=== PATIENT | female | born 1940 | race Caucasian/White ===

== ENCOUNTER 2017-04-10 11:26 | Inpatient (IN) | payer MEDICARE, OTHER ==
[~2017-04-10] VITALS: Ht 172.7 cm; Wt 115.2 kg
[2017-04-10] VITALS (8 sets, daily range): BP systolic 107–145; BP diastolic 45–104; PULSE 62–79; RESP 16–22; O2SAT 96–99
[~2017-04-10 11:26] MED LIST: ACET-171 PO; ASPI81TA3 PO; CALC600T12 PO; CHOL10008 PO; CITA20TA11 PO; OMEP20TA86 PO; SLO64 PO
[2017-04-10] MEDS ORDERED: 0.9% Sodium Chloride 1,000 ML IV ONE ×2 (11:29→12:25)
--- NOTE | 2017-04-10 11:29 | ED.REPORT ---
HPI-GI Bleed Date of Service Apr 10, 2017 ED Provider: Cornelius Encinas MD Pt is a 76 y/o female w/ a hx of paroxysmal a-fib (not on anticoagulation), HTN , presenting to the ED via EMS c/o hematemesis onset this morning. The patient has been experiencing dark tarry stools and diarrhea for the last 2 weeks which has not been worked up. This morning she vomited with emesis which appeared to be coffee-ground and dark red in appearance. The patient has been experiencing chronic abdominal pain and had a CT scan performed in September which was unremarkable. The patient was discouraged with the negative results and therefore hasn't been to follow-up since that time. Medics arrived to fine the patient pale, diaphoretic, and hypotensive. She is usually hypertensive and on route had a systolic BP of 95 after 600-700 cc of NS. She has no history of GI bleeds in the past. She takes 81 mg ASA daily and no anticoagulants. Her only abdominal surgery is cholecystectomy. At time of arrival she has received about 1 L NS and her HR is 70 and BP is 112/53. She is currently complaining of burning epigastric pain. Nursing Notes Stated Complaint: BLOODY EMESIS Nursing Notes Reviewed: Yes Allergies: Coded Allergies: No Known Drug Allergies (Verified Allergy, Unknown, 09/04/15) Scheduled Amlodipine (Amlodipine) 5 Mg Tablet 5 MG PO DAILY Aspirin Chew (Aspirin Chew) 81 Mg Tab.chew 81 MG PO DAILY Calcium Carbonate (Calcium) 600 Mg Tablet 600 MG PO DAILY Cholecalciferol (Vitamin D3) (Vitamin D3) 1,000 Unit Tab.chew 2,000 UNIT PO DAILY Citalopram (Citalopram) 20 Mg Tablet 20 MG PO DAILY Folic Acid (Folic Acid) 0.4 Mg Tablet Unknown Dose PO DAILY Scheduled PRN Acetaminophen (Acetaminophen) 500 Mg Tablet 500 MG PO Q6H PRN PRN For Fever Omeprazole (Omeprazole) 20 Mg Tablet.dr 20 MG PO DAILY PRN PRN For Indigestion General Time Seen by Provider: 11:31 Chief Complaint Chief Complaint: Vomiting coffee grounds Hx Obtained From: Patient, EMS Arrived By: Ambulance Onset Occurred: 1 - 4 hours ago Symptom Duration: Since onset Progression Since Onset: Gradually improving Location: : Diffuse Quality: Painful Severity: Current: Mild Severity: Maximum: Moderate Recent Healthcare: No recent doctor visit, No recent hospitalization Similar Sx Previous: No Past Medical History Past Medical History Notes: PCP: Dr. Aaron Past Medical History Depression Atrial fibrillation not on anticoagulation Hypertension Past Surgical History Back surgery Reports: Cholecystectomy Smoking History Former Smoker Social History Alcohol Use: Denies alcohol use Drug Use: Denies drug use Other Social History: Good social support Ambulatory Status Independent Review of Systems Constitutional: Denies: Fever Respiratory: Denies: Shortness of breath Cardiovascular: Denies: Chest pain GI: Reports: Abdominal pain, Bloody/tarry stool, Diarrhea, Hematemesis, Nausea , Vomiting Complete sys rev & neg: except as marked. Physical Exam Initial Vital Signs Vital Signs (First) Date Time Temp Pulse Resp B/P Pulse Ox O2 Delivery O2 Flow Rate FiO2 04/10/17 11:40 36.4 76 20 112/53 96 Room Air Initial VS: Reviewed, Vital signs normal Neck: Supple, Full range of motion Extremities: Vascular intact, Neuro intact, No swelling Neurologic: Alert, Oriented, Nonfocal Psychiatric: Mood/affect normal, Behavior normal, Normal thought content General/Constitutional: Awake, Alert, No acute distress, Cooperative, Not toxic appearing Appearance / Presentation: Positive: Pale (mild) Behavior is stoic Respiratory / Chest: Breath sounds NL, Breath sounds = bilat, No respiratory distress, No rales, No rhonchi, No wheezing Cardiovascular: Heart rate NL, Regular rhythm, Heart sounds NL, No gallop, No murmurs, No rubs, Cap refill not delayed, Peripheral circulation NL, Pulses = bilaterally Abdomen: Atraumatic, Soft, Non-tender, No guarding, No rebound, No distention, No palpable mass Rectum / Perineum: Atraumatic Rectal for Blood: Positive: Blood - occult heme + Black stool Head / Eyes: Normocephalic, PERRL Mild scleral pallor Skin Skin: Atraumatic, Warm, Dry, Intact Mildly pale Lower Extremity / Pelvis / MS: No deformity, Neurologic intact, Vascular intact Small ecchymosis about right anterior paul Interpretation & Diagnostics Lab Results Interpretation Result Diagram: 04/10/17 1147 04/10/17 1147 Test 04/10/17 11:47 White Blood Count 12.4th/mm3 (3.8-10.1) Red Blood Count 3.69mil/mm3 (3.90-5.20) Hemoglobin 10.3g/dL (12.0-15.6) Hematocrit 32.4% (35.0-46.0) Mean Corpuscular Volume 87.8fL (81-100) Mean Corpuscular Hemoglobin 27.9pg (27.0-35.0) Mean Corpuscular Hemoglobin Concent 31.8% (32.0-37.0) Red Cell Distribution Width 13.5% (12.3-15.4) Platelet Count 294bil/L (150-400) Neutrophils (%) (Auto) 72.0% (40-74) Lymphocytes (%) (Auto) 19.7% (14-46) Monocytes (%) (Auto) 6.6% (4-12) Eosinophils (%) (Auto) 1.4% (0-5) Basophils (%) (Auto) 0.1% (0-3) Prothrombin Time 10.7sec (8.1-12.5) Prothromb Time International Ratio 1.00ratio Sodium Level 138mEq/L (134-144) Potassium Level 4.4mEq/L (3.5-5.2) Chloride Level 104mEq/L (97-108) Carbon Dioxide Level 21mmol/L (18-29) Blood Urea Nitrogen 36mg/dL (8-27) Creatinine 0.85mg/dL (0.57-1.00) Estimat Glomerular Filtration Rate 93mL/min (>59) Glucose Level 155mg/dL (60-99) Calcium Level 8.7mg/dL (8.5-10.1) Magnesium Level 1.7mg/dL (1.6-2.6) Total Bilirubin 0.4mg/dL (0.0-1.2) Aspartate Amino Transf (AST/SGOT) 10U/L (0-50) Alanine Aminotransferase (ALT/SGPT) 7U/L (0-32) Alkaline Phosphatase 75U/L (25-165) Total Protein 6.5g/dL (6.4-8.4) Albumin 3.3g/dL (3.4-5.0) Prealbumin 23mg/dL (20-40) Hold Gunn Top Tube Received (Received) ECG Interpretation ECG Interpretation: Sinus rhythm rate 65 LAD Nonspecific T wave abnormalities in leads V5 and V6 Compared to prior dated 09/05/15 - T wave abnormalities are now present laterally Time: 12:11 Interpreted by: ED physician Normal ECG Interpretation: No acute ischemic changes Re-Eval/Medical Decision Med Decision/Clinical Course Pt is a 76 y/o female w/ a hx of paroxysmal a-fib (not on anticoagulation), HTN , presenting to the ED via EMS c/o hematemesis onset this morning. The patient has been experiencing dark tarry stools and diarrhea for the last 2 weeks which has not been worked up. This morning she vomited with emesis which appeared to be coffee-ground and dark red in appearance. The patient has been experiencing chronic abdominal pain and had a CT scan performed in September which was unremarkable. The patient was discouraged with the negative results and therefore hasn't been to follow-up since that time. Medics arrived to fine the patient pale, diaphoretic, and hypotensive. She is usually hypertensive and on route had a systolic BP of 95 after 600-700 cc of NS. She has no history of GI bleeds in the past. She takes 81 mg ASA daily and no anticoagulants. Her only abdominal surgery is cholecystectomy. At time of arrival she has received about 1 L NS and her HR is 70 and BP is 112/53. She is currently complaining of burning epigastric pain. Upon arrival in the emergency department the patient is borderline hypotensive and somewhat pale in appearance though otherwise with stable vital signs. Pt was placed on the monitor and 2 large bore peripheral IVs were obtained. Meds given: pantoprazole bolus and infusion, IVF, Zofran. EKG: Sinus rhythm rate 65 LAD Nonspecific T wave abnormalities in leads V5 and V6 Compared to prior dated 09/05/15 - T wave abnormalities are now present laterally Labs notable as below: CBC: Leukocytosis of 12.4, HCT of 32.4 down from 39.5 on 09/06/15 CMP: elevated BUN of 36 otherwise unremarkable Coag studies: normal Patient noted to have some coffee-ground emesis material on her clothing. Rectal examination reveals black stool that is strongly guaiac positive. Patient complained of ongoing burning epigastric pain though her abdomen was otherwise benign without guarding, rigidity or rebound. She was given a GI cocktail and hydromorphone for additional pain management. Patient was discussed with Dr. Nieves with plan to perform endoscopy tomorrow. There are no findings at this time suggestive of an acute surgical process or perforated ulcer as her abdominal examination is not peritoneal. I do not feel that CT imaging of her abdomen will be of much diagnostic utility at this time. Patient was stabilized after receiving IV fluids and blood is sent for type and screen. Given the patient's initial hypotension, active GI bleed and possibility of deterioration she was admitted to the ICU for further management after being stabilized here in the emergency department. She was discussed with admitting hospitalist and accepted. Re-Evaluation/Progress #1: Time of Eval: 11:48 Re-Evaluation/Progress Note: Pt rechecked. Informed pt of need for admission. Pt understands and agrees with plan for admission. All questions addressed. Re-Evaluation/Progress #2: Time of Eval: 13:14 Re-Evaluation/Progress Note: Now complaining of burning abdominal pain. Will order GI cocktail. Consultation #1: Referral / Consult Name: Bo Nieves MD Call Returned at: 11:30 O And M Supervisor: Will see patient, Agrees with eval, Agrees with plan Note: Discussed case with GI prior to pt arrival. Will scope tomorrow Consultation #2: Referral / Consult Name: Unique Ferreira DO Consulted With: Hospitalist Call Returned at: 14:03 O And M Supervisor: Will see patient, Agrees with eval, Agrees with plan, Accepts admit Counseled Regarding: Diagnosis, Lab results, Need for admission Discharge & Departure Impression: Primary Impression: Upper GI bleed Additional Impressions: Hematemesis Nausea presence: with nausea Qualified Code: K92.0 - Hematemesis Abdominal pain Abdominal location: epigastric Qualified Code: R10.13 - Epigastric pain Peptic ulcer disease Hypotension Hypotension type: unspecified hypotension type Qualified Code: I95.9 - Hypotension, unspecified Disposition: ADMITTED TO HOSPITAL Discharge Condition All VS Reviewed: Yes Condition: Stable Referrals: Shelton Aaron MD (PCP) Crit Care Except Billable Proc Time Spent: 30-74 minutes Services Performed: Patient management by me, Time spent at bedside, Reviewing test results, Reviewing imaging, Discussing patient care, Documentation in record, Time with fam/surrogate Critical Care Notes: Management of active GI bleed, stabilization of initial hypotension Scribe Attestation Portions of this note were transcribed by Nghia Gomez. I, Dr. Encinas personally performed the history, physical exam and medical decision-making; I reviewed and confirmed the accuracy of the information in the transcribed note. copies to: Shelton Aaron MD, Beck O MD Apr 10, 2017 11:29 NGHIA GOMEZ Apr 10, 2017 11:34
[2017-04-10] MEDS ORDERED: Pantoprazole Inj 80 MG, Pharmacy To Mix 1 EA in 0.9% Sodium Chloride 80 ML IV ONE ×2 (11:30)
[2017-04-10] MEDS ORDERED: Pantoprazole 4 mg/mL 10 mL Inj IVPUSH ONE (11:30)
[2017-04-10] MEDS ORDERED: Ondansetron 2 mg/mL 2 mL Inj IVPUSH ONE (11:30)
[2017-04-10 12:06] LABS: BASOPHILS % (AUTO) 0.1 % (0-3); EOSINOPHILS % (AUTO) 1.4 % (0-5); MONOCYTES % (AUTO) 6.6 % (4-12); Mean Corpuscular Hemoglobin 27.9 pg (27.0-35.0); Mean Corpuscular Volume 87.8 fL (81-100); Platelet Count 294 bil/L (150-400)
[2017-04-10] MEDS ORDERED: HYDROmorphone 1 mg/mL Inj IVPUSH ONE (12:25)
[2017-04-10 12:30] LABS: Magnesium 1.7 mg/dL (1.6-2.6)
[2017-04-10] MEDS ORDERED: LidocaineVisc 2%:Antacid 1:1 10 mL Syringe PO ONE (13:15)
[2017-04-10] MEDS ORDERED: AMLO5TAB2 PO (13:30)
[2017-04-10] MEDS ORDERED: CALC600T12 PO (13:31)
[2017-04-10] MEDS ORDERED: FOLI0.4T2 PO (13:32)
[2017-04-10] MEDS ORDERED: Alum-Mag Hydrox-Simeth 30 mL Suspension PO PRN (14:10)
[2017-04-10] MEDS ORDERED: Polyethylene Glycol (PEG) 17 Gm Powder PO PRN (14:10)
[2017-04-10] MEDS ORDERED: Senna-Docusate 8.6-50 mg Tablet PO PRN (14:10)
[2017-04-10] MEDS ORDERED: Ondansetron 2 mg/mL 2 mL Inj IVPUSH PRN (14:10)
--- NOTE | 2017-04-10 14:24 | CONS ---
[address] [address] CONSULTATION REPORT PATIENT: NARA MUNROE : 1940 MR#: [id number] ADMIT: 04/10/2017 JOB ID: [id number] DATE OF SERVICE: 04/10/2017 REASON FOR CONSULTATION: Coffee-ground emesis and melena. HISTORY OF PRESENT ILLNESS: A 76-year-old, female, history of paroxysmal atrial fibrillation, hypertension, depression, not on anticoagulation, cholecystectomy and back surgery in past. Presents here with hematemesis x1 day and melenic stools for the past two weeks. The patient states she has had several melenic stools per day for the past two weeks. The patient also states that she vomited once this morning which was burgundy and dark in color this morning. The patient states this was about a cupful. The patient had an EGD and colonoscopy at the age of 66 which was normal per the patient. I have no records. The patient denies family history of colon cancer, IBD, or celiac disease. The patient denies rectal bleeding, abdominal pain, change in bowel habits, or unintentional weight loss. The patient was found by the medics to be hypotensive, systolic blood pressure is 90s. The patient is not taking any NSAIDs and no history of alcohol use. Patient only takes a baby aspirin. The patient presents for further evaluation. The patient's hemoglobin was 10.3. PAST MEDICAL HISTORY: As stated above. PAST SURGERIES: As stated above. MEDICATIONS AT HOME: 1. Baby aspirin. 2. Calcium carbonate. 3. Vitamin D. 4. Citalopram. 5. Omeprazole 20 mg once a day. No known drug allergies. SOCIAL HISTORY: Former smoker. No IV drug use. No alcohol, no smoking. FAMILY HISTORY: Negative for IBD, celiac disease or colon cancer. REVIEW OF SYSTEMS: Patient denies headache, blurred vision. Positive nausea, vomiting. No chest pain, shortness of breath, abdominal pain, skin rash, joint pain. PHYSICAL EXAMINATION: Vital signs upon presentation: Temperature is 36.4, pulse 77, blood pressure 107/57, respiratory 20, satting 99% on room air. General: No acute distress. Head: No scars. Anicteric. Throat supple. Lungs: Clear to auscultation bilaterally. Cardiovascular: Regular rhythm and rate. Abdomen: Soft, nondistended, nontender. Normal bowel sounds. Extremities: No cyanosis, clubbing or edema. LABORATORIES: Labs show white count 12.4, hemoglobin 10.3, hematocrit 32, platelet count of 294. Sodium 138, potassium 4.4, chloride 104, bicarb 21, BUN 36, creatinine 0.8, glucose 155. Calcium 8.7, magnesium 1.7. Total bili 0.4. AST 10, ALT 7, alk phos 75. Total protein 6.5, albumin 3.3. PT 10.7, INR 1.0. ASSESSMENT AND PLAN: This is a pleasant 76-year-old, female, history of paroxysmal atrial fibrillation, not on anticoagulation, hypertension, depression, status post cholecystectomy and back surgery. She presents here with melena and coffee-ground emesis. It is likely the patient has an upper gastrointestinal bleed given the fact the BUN is elevated with a normal creatinine, and in addition the patient has vomited blood. Differential diagnosis includes esophagitis, gastritis, peptic ulcer disease, duodenitis or Jada-Alarcon tear. Patient in addition needs a colonoscopy given the fact it has been greater than 10 years since her last colonoscopy with melenic stools. RECOMMENDATIONS: 1. Continue Protonix drip. 2. N.p.o. except for medications. 3. GoLYTELY prep tonight for EGD and colonoscopy with anesthesia tomorrow.
--- NOTE | 2017-04-10 14:50 | PCM.HPMED ---
Subjective Date of Service Apr 10, 2017 Primary Provider: Admitting Physician: Unique Ferreira DO Primary Care Physician: Shelton Aaron MD Attending Physician: Unique Ferreira DO Admit Status: From the Emergency Department Chief Complaint: hematemesis, melena, diarrhea History of Present Illness: Erica Forbes is a 76 yr old female patient with past medical history significant for paroxysmal atrial fibrillation not on anticoagulation, hypertension and depression who presented to the ED with complaints of hematemesis, dark tarry stools, and diarrhea. Patient states that for the past 2 weeks, she has had dark tarry stools with diarrhea and this morning, she vomited over a cup of emesis that appeared to be coffee ground and dark red in appearance. In addition, she recalls feeling like she was going to pass out. She noticed her vision going dim, felt sweaty, cold, clammy and was really wet. She denied chest pain and shortness of breath. She states that she has been having abdominal pain, mostly in the mid epigastric area and right lower quadrant since about June 2016. She describes the pain as a mild-moderate sharp pain that doesn't radiate elsewhere. Her primary care physician ordered a CT of the abdomen in September which was negative for any acute pathology. In addition, she states that she had a colonoscopy and an EGD about 10 years ago which she says was normal. She reports having a cholecystectomy in April 2015. The patient denies drinking alcohol, or taking NSAIDs. She takes Aspirin 81 mg daily and Tylenol occasionally for her back pain. En route to the ED via EMS, her systolic BP was around 95 and she received 700 cc NS. In the ED, her temperature was 36.4, heart rate 76, blood pressure 112/53 , 96% on room air. Patient was placed on the monitor in 2 large bore peripheral IVs were obtained. She received a bolus of pantoprazole and infusion , GI cocktail, intravenous fluids and Zofran. Significant labs include WBC 12.4 , Hgb/ HCT of 10.3/ 32.4 elevate BUN 36, normal creatinine 0.85. Tape Keller Operator, Dr. Nieves was consulted and he plans to perform an EGD and colonoscopy on 04/11/17. Patient was transferred to the CCU in stable condition. Review of Systems: The comprehensive review of systems was conducted with the patient and found to be negative except as above in the history of present illness. Allergies Coded Allergies: No Known Drug Allergies (Verified Allergy, Unknown, 09/04/15) Home Medications Amlodipine 5 mg daily Aspirin 81 mg daily Vitamin D Calcium Chewables Citalopram 20 mg daily Omeprazole 20 mg as needed Acetaminophen as needed for back pain PMH Hypertension, paroxysmal atrial fibrillation not on anticoagulation, depression Surgical History Cholecystectomy 04/2015 , Back surgery Family History Family history significant for father with coronary artery disease, maternal aunt with breast cancer, mother with brain aneurysm Social History Occupation: works at [employer] Hx Alcohol Use: No Hx Substance Use: No Smoking Status: Former Smoker (4 pack yr hx, quit in 1970s) Years of Smokin Living Arrangement: with Family Exam Vital Signs Vital Sign - Last Date Time Temp Pulse Resp B/P Pulse Ox O2 Delivery O2 Flow Rate FiO2 04/10/17 13:32 36.8 62 20 110/66 98 Room Air Exam General: Patient is an obese female, lying comfortably on bed, AAOX3, not in acute distress, cooperative and pleasant. HEENT: head normocephalic and atraumatic, PERRLA, EOMI, no scleral icterus, noninjected conjunctiva Neck: neck supple, non-tender, no lymphadenopathy, trachea midline, no JVD CV: regular rate and rhythm, s1 and s2 heard, radial pulses 2+ and equal bilaterally, no rubs, murmurs or gallops, no edema Lungs: Clear to auscultation bilaterally, no wheezes, rales or rhonchi, no increased work of breathing Abdomen: normoactive bowel sounds on 4Q, soft, non-distended, non-tender to palpation, no organomegally, Skin: warm and dry Musculoskeletal: 5/5 UE and LE strength bilaterally, full ROM bilaterally Neuro: Grossly neurologically intact, cranial nerves II through XII intact, no dyskinesia, dysmetria, or dysdiadochokinesia noted, sensation intact in extremities Psych: Normal mood and affect Lab and Diagnostics Labs Laboratory Tests Test 04/10/17 11:47 White Blood Count 12.4th/mm3 (3.8-10.1) Red Blood Count 3.69mil/mm3 (3.90-5.20) Hemoglobin 10.3g/dL (12.0-15.6) Hematocrit 32.4% (35.0-46.0) Mean Corpuscular Volume 87.8fL (81-100) Mean Corpuscular Hemoglobin 27.9pg (27.0-35.0) Mean Corpuscular Hemoglobin Concent 31.8% (32.0-37.0) Red Cell Distribution Width 13.5% (12.3-15.4) Platelet Count 294bil/L (150-400) Neutrophils (%) (Auto) 72.0% (40-74) Lymphocytes (%) (Auto) 19.7% (14-46) Monocytes (%) (Auto) 6.6% (4-12) Eosinophils (%) (Auto) 1.4% (0-5) Basophils (%) (Auto) 0.1% (0-3) Prothrombin Time 10.7sec (8.1-12.5) Prothromb Time International Ratio 1.00ratio Sodium Level 138mEq/L (134-144) Potassium Level 4.4mEq/L (3.5-5.2) Chloride Level 104mEq/L (97-108) Carbon Dioxide Level 21mmol/L (18-29) Blood Urea Nitrogen 36mg/dL (8-27) Creatinine 0.85mg/dL (0.57-1.00) Estimat Glomerular Filtration Rate 93mL/min (>59) Glucose Level 155mg/dL (60-99) Calcium Level 8.7mg/dL (8.5-10.1) Magnesium Level 1.7mg/dL (1.6-2.6) Total Bilirubin 0.4mg/dL (0.0-1.2) Aspartate Amino Transf (AST/SGOT) 10U/L (0-50) Alanine Aminotransferase (ALT/SGPT) 7U/L (0-32) Alkaline Phosphatase 75U/L (25-165) Total Protein 6.5g/dL (6.4-8.4) Albumin 3.3g/dL (3.4-5.0) Prealbumin 23mg/dL (20-40) Hold Gunn Top Tube Received (Received) Result Diagram: 04/10/17 1147 04/10/17 1147 X-Rays, CTs and MRIs August 25, 2016 PROCEDURE: CT ABDOMEN AND PELVIS WITH CONTRAST ([id number]) IMPRESSION: 1. No acute process. 2. Hiatal hernia. 3. Bilateral renal scarring. 4. Fat-containing umbilical hernia. 5. Normal appendix. Dictated by: Angel Carty M.D. on 08/25/2016 at 16:25 12-lead ECG 04/10/17 ECG Interpretation: Sinus rhythm rate 65 LAD Nonspecific T wave abnormalities in leads V5 and V6 Compared to prior dated 09/05/15 - T wave abnormalities are now present laterally Time: 12:11 Interpreted by: ED physician Normal ECG Interpretation: No acute ischemic changes Assessment & Plan Erica Forbes is a 76 yr old female patient with past medical history significant for paroxysmal atrial fibrillation not on anticoagulation, hypertension and depression who presented to the ED with complaints of hematemesis, dark tarry stools, and diarrhea. Patient is being admitted to the CCU for likely Upper Gastrointestinal bleed and will undergo EGD and colonoscopy with anesthesia tomorrow. Acute Hematemesis and Melena likely secondary to Upper GI Bleed, present on admission, under investigation. -Patient stable: In the ED, her temperature was 36.4, heart rate 76, blood pressure 112/53, Hgb/ HCT of 10.3/ 32.4 -symptoms are suggestive of Upper GI bleed, in addition to elevated BUN with normal creatinine -Differential Diagnosis include gastric ulcers, gastric erosions, esophagitis, duodenal ulcers -Tape Keller Operator, Dr. Nieves was consulted and we appreciate his input. -Continue Protonix drip -GI cocktail as needed -75 cc/hr NS -keep patient NPO and GoLYTELY prep tonight for EGD and colonoscopy with anesthesia tomorrow. -Trend H&H q 4hrs -Cross type and Match. Transfuse if Hgb <7 Normocytic Anemia, present on admission, ongoing -Hgb/ HCT of 10.3/ 32.4 -likely secondary to GI blood loss -Trend H&H q 4hrs Leukocytosis, present on admission, under investigation - Patient is afebrile, WBC 12.4, neutrophil count normal -Likely secondary to physiologic process (stress)/ inflammatory reaction -Continue to monitor CBC Hypertension, chronic -Patient was hypotensive en route to the ED and received 700 cc NS. She received more fluids in the ED and blood pressure is currently stable -Continue IV fluids at 75 cc/hr -Patient already took amlodipine 5 mg today -Hold medication and resume tomorrow after procedure Depression, chronic -Patient already took citalopram 20 mg today -Hold medication and resume tomorrow after procedure Patient is admitted under inpatient status expected length of stay greater than 2 midnights due to severity of presenting symptoms, risk of adverse events, and complexity of treatment plan. Code Status: Full Code Pain Evaluation: Adequate Pain Control GI Prophylaxis: Other (Protonix drip) VTE Prophylaxis: SCDs VTE Mechanical Devices: Intermittant Pneumatic CD Resuscitation Status: CPR: Attempt Resuscitation Attending Statement The patient was seen and examined together with Dr. Reynolds on 04/11/17 and I have added additional information to the note above. Sanaz Reynolds DO Apr 10, 2017 14:50 Unique Ferreira DO Apr 11, 2017 12:30 VTE Mechanical Devices: Intermittant Pneumatic CD Resuscitation Status: CPR: Attempt Resuscitation Sanaz Reynolds DO Apr 10, 2017 14:50
[2017-04-10] MEDS ORDERED: LidocaineVisc 2%:Antacid 1:1 10 mL Syringe PO PRN (15:45)
[2017-04-10] MEDS ORDERED: PEG/Electrolytes 4,000 mL Solution PO ONE (16:00)
[2017-04-10] MEDS: 0.9% Sodium Chloride 1,000 ML IV SCH (16:34)
--- NOTE | 2017-04-10 16:41 | PCM.ADCARE ---
Advance Care Planning Note Plan: Date: 04/10/2017 Diagnosis: Acute blood loss anemia secondary to GI bleed Normocytic anemia Hypertension Depression Purpose of encounter: Goals of care Parties in attendance: The patient, Dr. Ferreira, her nurse, the patient also previously reported her code status to Dr. Reynolds as well Decisional capacity: Good Plan: The patient is aware of the current diagnosis and would like to continue to be full code. The patient understands that this means for chest compressions , intubation, pressors, and all measures involved with CPR. CODE STATUS: Full code Time spent with advanced care planning: Greater than 16 minutes Unique Ferreira DO Apr 10, 2017 16:41
--- NOTE | 2017-04-10 18:16 | NUR ---
Admit Note: Patient arrived to CCU room 2013 at 1605. Pt was able to transfer self from rney to bed. Pt A&O X3. VSS. Tele: Sinus 60's. Pt denies CP, SOB or dizziness. PIV X2. Protonix gtt infusing at 10mL/hr. NS was started at 75mL/hr as ordered and Colyte was started at 1630. Pt has had one large melenic stool. c/o nausea, Zofran 4mg IVP administered. Frequent rounding in place. Pt using call light appropriately to communicate needs including assistance to BSC, pt wearing nonskid footwear.
[2017-04-10] MEDS: Pantoprazole Inj 80 MG, Pharmacy To Mix 1 EA in 0.9% Sodium Chloride 80 ML IV SCH ×2 (21:10)
[2017-04-11] VITALS (13 sets, daily range): BP systolic 96–135; BP diastolic 40–68; PULSE 59–91; RESP 16–19; O2SAT 95–100
[2017-04-11 03:50] LABS: BASOPHILS % (AUTO) 0.1 % (0-3); EOSINOPHILS % (AUTO) 1.5 % (0-5); Mean Corpuscular Volume 86.7 fL (81-100); NEUTROPHILS % (AUTO) 63.1 % (40-74); Platelet Count 236 bil/L (150-400)
[2017-04-11] MEDS: 0.9% Sodium Chloride 1,000 ML IV SCH ×2 (04:37→19:42)
--- NOTE | 2017-04-11 06:39 | NUR ---
GI: pt. finished colyte prep at 2044, npo since. Pt. had loose, dark, bloody, diarrhea, clear at times per firer retort. Pt. denies pain or nausea.
[2017-04-11] MEDS: Pantoprazole Inj 80 MG, Pharmacy To Mix 1 EA in 0.9% Sodium Chloride 80 ML IV SCH ×4 (06:58→19:42)
--- NOTE | 2017-04-11 09:30 | NUR ---
NPO for procedures/Colyte prep completed
[2017-04-11] MEDS ORDERED: Lactated Ringer's 1,000 ML IV SCH (11:15)
[2017-04-11] MEDS ORDERED: Ondansetron 2 mg/mL 2 mL Inj IVPUSH PRN (11:15)
[2017-04-11] MEDS ORDERED: MetoCLOpramide 5 mg/mL 2 mL Inj IVPUSH PRN (11:15)
--- NOTE | 2017-04-11 11:24 | PCM.HPANE ---
Patient Data Surgeon Admitting Provider:Unique Ferreira DO Attending Provider:Unique Ferreira DO Primary Care Physician:Shelton Aaron MD Other Provider: Reason for Visit Hypotension, Gi Bleed Ht/WT & BMI Height (Feet): 5 Height (Inches): 8.00 Weight (Kilograms): 112.000 Body Mass Index 37.00 Allergies Coded Allergies: No Known Drug Allergies (Verified Allergy, Unknown, 09/04/15) Past Anesthesia History Anesthesia History: Denies:: Abnormal Airway, Anesthesia Reactions, Fam Anesthesia Reaction, Fam Malignant Hypertherm, Malignant Hyperthermia Diabetes History Hx Diabetes?: No MRSA MRSA: No Medications Blood Thinner: Aspirin Active Scripts Aspirin Chew 81 Mg Tab.chew81 Mg PO DAILY #30 Prov:Job [place] MD 06/26/14 Reported Medications Folic Acid 0.4 Mg TabletUnknown Dose PO DAILY 04/10/17 Calcium Carbonate (Calcium)600 Mg [id number] Mg PO DAILY 04/10/17 Amlodipine 5 Mg Tablet5 Mg PO DAILY Ref 0 04/10/17 Cholecalciferol (Vitamin D3) (Vitamin D3)1,000 Unit Tab.chew2,000 Unit PO DAILY 09/05/15 Acetaminophen 500 Mg [id number] Mg PO Q6H PRN For Fever 06/24/15 Citalopram 20 Mg Dlulbl33 Mg PO DAILY Ref 0 05/01/15 Omeprazole 20 Mg Tablet.dr20 Mg PO DAILY PRN For Indigestion 04/27/15 Discontinued Reported Medications Magnesium Chloride (Slow-Mag)64 Mg [id number] Mg PO 06/24/15 Calcium Carbonate (Calcium)600 Mg Fxmlll413 Mg PO BID 05/01/15 History History of ENT Problems?: No HEENT History: Positive for:: Cataracts ("they are just starting") Denies:: Abnormal Airway Dysphagia Glaucoma Hearing Problem Sinus Problem Denture Type: Full- Upper Teeth Condition: Missing Teeth Hx of Heart Problems?: Yes Cardiovascular History: Positive for:: Edema (occasionally) Hypertension Irregular Heartbeat Denies:: AICD Atrial Fibrillation Cardiac Surgery Chest Pain Congestive Heart Failure Heart Murmur Pacemaker Thrombophlebitis Valvular Heart Disease Other History/Comments No CP Hx of Respiratory Problem?: No Respiratory History: Denies:: Asthma COPD Chest Surgery Dyspnea Emphysema Hemoptysis Pneumonia Tuberculosis Hx Neurologic Problems?: Yes Neurological History: Positive for:: CVA ( TIA 2013) Headaches Denies:: Alzheimer's Disease Dementia Dizziness Parkinson's Disease Seizures Hx of GI Problems?: Yes (GIB) Hx of Problems?: Yes Genitourinary History: Positive for:: Urinary Tract Infection Denies:: HX of Hemodialysis Kidney Stones HX of Peritoneal Dialysis: No Female Hx: Denies:: Currently Endometriosis Pelvic Inflammatory Problems with Breasts? Hx Musculoskeletal Problems?: Yes Musculoskeletal History: Positive for:: Back Injury (Surgery 2009) Musculoskeletal Trauma (back injury from fall ) Denies:: Joint Replacement Hx of Psycho/Social Problems?: Yes Psycho Social History: Positive for:: Hx Depression Denies:: Anxiety Bipolar Disorder Suicide Attempt Hx Surgeries?: Yes (gallbladder and back) Hx Any Other Health Problems?: Yes Other History: Positive for:: Hospitalization (06/2014 TIA 05/2015 Gallbladder surgery ) Thyroid Disease (History as a child, nothing current.) Denies:: Cancer History Blood Transfusions: Positive for:: Accept Blood Products? Denies:: Blood Transfusions Hx Diabetes: No Occupation: works at [employer] Hx Alcohol Use: NoHx Substance Use: No Smoking Status: Former Smoker (4 pack yr hx, quit in 1970s) Have You Smoked inLast 12 mo: No Stop/Bang Treated for Sleep Apnea?: No Do You Have a CPAP Machine?: No S-Snoring: Do You Snore Loudly: Yes T-Tired: feel tired, fatigued: No O-Obsered: Observed not breath: No P-Blood Pressure: treated: No B- Body Mass Index > 35 kg/m2: Yes A- Age over 50: Yes N- Neck Large Circumference: No G- Gender Male: No RODRIGUEZ Total Score: 3 RODRIGUEZ Category 2: Yes Risk Assessment Category Category 1A: Patient has history of documented sleep apnea, and HAS NOT received any narcotic, sedative or anesthesia administration during this stay. Category 1B: Patient has history of documented sleep apnea, and HAS received any narcotic , sedative or anesthesia administration during this stay Category 2: Patient has SUSPECTED Obstructive Sleep Apnea, and HAS received any narcotic , sedative or anesthesia administration during this stay. Category 3: Patient has SUSPECTED Obstructive Sleep Apnea and HAS NOT received narcotic, sedative or anesthesia administration during this stay. Category 4: Outpatient in Procedural Areas with known sleep apnea or who screen positive for High Risk via the STOP/BANG questionnaire. Exam Exam Vital Signs Vital Signs Date Time Temp Pulse Resp B/P Pulse Ox O2 Delivery O2 Flow Rate FiO2 04/11/17 08:00 74 04/11/17 05:42 91 General Appearance: Alert, Oriented X3 HEENT/AIRWAY: MP 2, Neck Movement (FROM) Lungs: Clear to Auscultation, Clear to Percussion Heart: Exam Unremarkable, Regular Rate/Rhythm Meds/Labs/Diagnostics Admission Meds Current Medications Pantoprazole 80 mg 80 mg STAT ONCE IVPUSH Last administered on 04/10/17 12:09 ; Start 04/10/17 at 11:30; Stop 04/10/17 at 11:32; Status DC Pantoprazole 80 mg/Miscellaneous 1 ea/Sodium Chloride 100 ml @ 10 mls/hr ONCE ONCE IV Last administered on 04/10/17 12:24; Start 04/10/17 at 11:30; Stop at 21:29; Status DC Sodium Chloride (Normal Saline) 1,000 ml @ 0 mls/hr Q0M ONCE IV Last administered on 04/10/17 12:02; Start 04/10/17 at 11:29; Stop 04/10/17 at 11:32; Status DC Ondansetron HCl (Zofran Inj) 8 mg ONCE ONCE IVPUSH Last administered on 12:09; Start 04/10/17 at 11:30; Stop 04/10/17 at 11:32; Status DC Hydromorphone HCl 1 mg 1 mg ONCE ONCE IVPUSH Last administered on 04/10/17 12: 41; Start 04/10/17 at 12:25; Stop 04/10/17 at 12:26; Status DC Sodium Chloride (Normal Saline) 1,000 ml @ 0 mls/hr Q0M ONCE IV Last administered on 04/10/17 12:25; Start 04/10/17 at 12:25; Stop 04/10/17 at 12:26; Status DC Miscellaneous (GI Cocktail #2 10 mL) 10 ml ONCE ONCE PO Last administered on 13:31; Start 04/10/17 at 13:15; Stop 04/10/17 at 13:16; Status DC Polyethylene Glycol/ Electrolytes 4000 ml 4,000 ml ONCE ONCE PO Last administered on 04/10/17 16:33; Start 04/10/17 at 16:00; Stop 04/10/17 at 16:01; Status DC Pantoprazole 80 mg/Miscellaneous 1 ea/Sodium Chloride 100 ml @ 10 mls/hr Q10H IV Last administered on 04/11/17 06:58; Start 04/10/17 at 21:00 Sodium Chloride (Normal Saline) 1,000 ml @ 75 mls/hr [id number] IV Last administered on 04/11/17 04:37; Start 04/10/17 at 15:50 Labs Test 04/10/17 11:47 04/11/17 03:35 04/11/17 07:42 Prothrombin Time 10.7sec (8.1-12.5) Prothromb Time International Ratio 1.00ratio Magnesium Level 1.7mg/dL (1.6-2.6) Prealbumin 23mg/dL (20-40) Hold Gunn Top Tube Received (Received) White Blood Count 7.4th/mm3 (3.8-10.1) Red Blood Count 3.00mil/mm3 (3.90-5.20) Mean Corpuscular Volume 86.7fL (81-100) Mean Corpuscular Hemoglobin 28.0pg (27.0-35.0) Mean Corpuscular Hemoglobin Concent 32.3% (32.0-37.0) Red Cell Distribution Width 13.7% (12.3-15.4) Platelet Count 236bil/L (150-400) Neutrophils (%) (Auto) 63.1% (40-74) Lymphocytes (%) (Auto) 27.2% (14-46) Monocytes (%) (Auto) 8.0% (4-12) Eosinophils (%) (Auto) 1.5% (0-5) Basophils (%) (Auto) 0.1% (0-3) Sodium Level 142mEq/L (134-144) Potassium Level 3.6mEq/L (3.5-5.2) Chloride Level 110mEq/L (97-108) Carbon Dioxide Level 21mmol/L (18-29) Blood Urea Nitrogen 29mg/dL (8-27) Creatinine 0.71mg/dL (0.57-1.00) Estimat Glomerular Filtration Rate 115mL/min (>59) Glucose Level 108mg/dL (60-99) Lactic Acid Level 0.8mmol/L (0.4-2.0) Calcium Level 7.5mg/dL (8.5-10.1) Total Bilirubin 0.3mg/dL (0.0-1.2) Aspartate Amino Transf (AST/SGOT) 10U/L (0-50) Alanine Aminotransferase (ALT/SGPT) 9U/L (0-32) Alkaline Phosphatase 55U/L (25-165) Total Protein 4.9g/dL (6.4-8.4) Albumin 2.5g/dL (3.4-5.0) Procalcitonin 0.14ng/mL (0.00-0.08) Hemoglobin 7.4g/dL (12.0-15.6) Hematocrit 23.2% (35.0-46.0) Plan Impression Patient chart reviewed, patient interviewed and anesthestic plan with risks, benefits, and alternatives discussed, and informed consent obtained. ASA Physical Status: ASA3 Severe Disease (acute blood loss anemia) Anesthetic Plan: MAC Bene/Risks/Altern/Consents: Yes HP Complete Prior to Induction: Yes Des Ybarra MD Apr 11, 2017 11:16
[2017-04-11] MEDS ORDERED: Lactated Ringer's 1,000 ML IV ONE (11:41)
--- NOTE | 2017-04-11 12:30 | NUR ---
EGD, Colonoscopy completed/ recovery per PACU
--- NOTE | 2017-04-11 12:50 | PCM.ANEP1 ---
Post Anesthesia PACU Phase 1 Assessment Vital Signs Vital Signs Date Time Temp Pulse Resp B/P Pulse Ox O2 Delivery O2 Flow Rate FiO2 04/11/17 11:15 37 59 16 119/56 96 Room Air 04/11/17 08:00 74 04/11/17 05:42 91 Anesthetic Administered: MAC Level of Alertness: Awake, talking BRYANT's with Equal Strength: Yes Pain: No Pain Scale Score: 2 Nausea or Vomiting: No CV Function & Hydration Stable: Yes Airway Device: Lungs: Clear to Auscultation, Clear to Percussion PACU Phase 2 Assessment Complications: No Follow up Care: No Patient Instructions Provided: N/A Comments See anesth record for PACU VS> PACU VSS Des Ybarra MD Apr 11, 2017 12:50
--- NOTE | 2017-04-11 14:04 | ENDO ---
[address] [address] ENDOSCOPY PROCEDURE PATIENT: NARA MUNROE : 1940 MR#: [id number] ADMIT: 04/10/2017 JOB ID: [id number] DATE OF SERVICE: 04/11/2017 TYPE OF OPERATION: Esophagogastroduodenoscopy with biopsy and epi injection and Gold probe thermocoagulation, and APC, colonoscopy. POSTOPERATIVE DIAGNOSIS: 1. There was a 1-cm duodenal ulcer at the posterior bulb with recent stigmata of bleed, status post 2 cc epinephrine injection, Gold probe thermocoagulation, argon plasma coagulation with good hemostasis. 2. Melena seen throughout the entire colon with pandiverticulosis. Intubation of the terminal shows melena of recent bleed. 3. External and internal hemorrhoids. ANESTHESIA: Monitored anesthesia care. COMPLICATIONS: None. ESTIMATED BLOOD LOSS: Minimal. DESCRIPTION OF PROCEDURE: After risks and benefits explained to the patient, informed consent was obtained. After anesthesia administered, upper endoscope was then inserted in mouth and intubated in the esophagus, stomach, second portion of duodenum, and the mucosa carefully examined. After procedure was done, the scope was withdrawn and the procedure terminated. Colonoscope was then inserted from the rectum to terminal ileum. Mucosa carefully examined. Prep of the patient was suboptimal. After procedure done, scope withdrawn, procedure terminated. FINDINGS: Upon inspection of the esophagus, esophageal was normal without masses, ulcers, lesions. Z-line located at 35 cm from the incisors. Upon entering the stomach, the stomach was also normal without masses or lesions. Retroflexion was normal. Upon entering the duodenum, there was a 1-cm posterior bulb ulcer with recent stigmata of bleed. First and 2nd portion were normal. Two cc of epi injection at the ulcer site with Gold probe thermocoagulation and APC with good hemostasis. Biopsies taken in antrum and body. Upon inspection of the anus, there were small internal and external hemorrhoids throughout the entire examination. There was melenic stool seen throughout the entire colon. There was also pandiverticulosis without active bleeding at that diverticulosis. Upon intubation of the terminal ileum, there appeared to be blood inside with melena. Retroflexion showed small internal hemorrhoids. IMPRESSION: 1. Small external and internal hemorrhoids. 2. Pandiverticulosis. 3. Melenic stool seen throughout the entire colon with blood in the terminal ileum. 4. A 1 cm posterior bulb duodenal ulcer with recent stigmata of bleed, status post 2 cc epinephrine injection, Gold probe thermocoagulation, and argon plasma coagulation. RECOMMENDATIONS: 1. Protonix drip x72 hours. 2. Carafate 1 g by mouth four times a day. 3. Clear liquid diet for now. 4. Serial hematocrits. 5. Avoid NSAID, aspirin, and anticoagulation.
[2017-04-11] MEDS ORDERED: MetoCLOpramide 5 mg/mL 2 mL Inj ONE (14:49)
--- NOTE | 2017-04-11 15:08 | NUR ---
Social Work Note: Initial Assessment Data& Assessment: EMR Reviewed. Erica Forbes is a 76 year old female admitted on 04/10/2017 for hypotension and GI bleed. Pt has Medicare and [employer] Supplemental insurance coverage. Pt PCP is Shelton Aaron MD. Pt lives in [place], with her son, daughter in law and grandson and is independent with all ADL's at baseline. Pt is able to ambulate independently but does own a cane, FWW and 4WW if needed. Pt does not have LTC insurance or VA benefits. Pt does not have HH hx but has been to [facility] in the past. Pt states she has DPOA/AD paperwork completed, COMMUNITY PHARMACIST requested a copy when possible. Pt son will transport her home at time of discharge. MD denies any other COMMUNITY PHARMACIST needs. MD does not identify any concerns for capacity for self care at this time. Pt denies any needs. COMMUNITY PHARMACIST to continue to follow if any pt needs or MD orders arise. Plan: Anticipated discharge home via POV when medically ready. COMMUNITY PHARMACIST to continue to follow if any pt needs or MD orders arise. MAXX Canas Addendum: 04/11/17 at 1511 by AMLAIKA BOWEN Amended: Links added.
--- NOTE | 2017-04-11 16:30 | NUR ---
Orders received to continue NPO tonight/Protonix gtt for total of 72hr Orders per [place]man.
--- NOTE | 2017-04-11 21:18 | PCM.PNMED ---
Subjective Date of Service Apr 11, 2017 Subjective Overnight: Nursing reports patient had a loose dark and clear with bloody streaks in bowel movement overnight. Today: The patient was seen prior to her EGD and colonoscopy and stated that she had also noticed the blood streaks in her stool overnight. The patient has no questions prior to her EGD and colonoscopy. The patient was seen again after her EGD and colonoscopy and denied any abdominal complaints. The patient is aware that given the findings of stomach ulceration that she will be required to be on a Protonix drip overnight, as well as trending H&H every 4 hours. Exam Vital Signs Vital Sign - Last Date Time Temp Pulse Resp B/P Pulse Ox O2 Delivery O2 Flow Rate FiO2 04/11/17 05:42 91 04/11/17 02:39 36.9 16 128/64 96 Room Air Intake and Output 04/10/17 04/10/17 04/11/17 Cumulative From/Thru 15:00 23:00 07:00 04/10/17 11:40 - 04/11/17 06:34 Intake Total 5045 ml 5045 ml Output Total 4300 ml 4300 ml Balance 745 ml 745 ml Intake Oral 4000 ml 4000 ml IV Total 1045 ml 1045 ml Output Stool Total 4300 ml 4300 ml Exam General: Patient is an obese female appearing younger than stated age, lying comfortably on bed, AAOX3, not in acute distress, cooperative and pleasant. Eyes: Pupils equal round and reactive to light, no scleral icterus, noninjected conjunctiva HENT: normocephalic and atraumatic, moist mucous membranes without central cyanosis, oropharynx clear Neck: neck supple, non-tender, no lymphadenopathy, trachea midline, no JVD CV: regular rate and rhythm, s1 and s2 present, systolic ejection murmur noted at apex, radial pulses 2+ and equal bilaterally, no rubs or gallops, no edema Lungs: Clear to auscultation bilaterally, no wheezes, rales or rhonchi, no increased work of breathing Abdomen: normoactive bowel sounds on 4Q, soft, non-distended, non-tender to palpation, no organomegally, Skin: warm and dry Neuro: Nonfocal neurologic exam, able to move ALL extremities spontaneously Psych: Normal mood and affect : No Doyle in place IVs and Medications Medications Reviewed: Medications were reviewed in detail Lab and Diagnostics Result Diagram: 04/11/17 0335 04/11/17 0335 X-Rays, CTs and MRIs August 25, 2016 PROCEDURE: CT ABDOMEN AND PELVIS WITH CONTRAST ([id number]) IMPRESSION: 1. No acute process. 2. Hiatal hernia. 3. Bilateral renal scarring. 4. Fat-containing umbilical hernia. 5. Normal appendix. Dictated by: Angel Carty M.D. on 08/25/2016 at 16:25 12-lead ECG 04/10/17 ECG Interpretation: Sinus rhythm rate 65 LAD Nonspecific T wave abnormalities in leads V5 and V6 Compared to prior dated 09/05/15 - T wave abnormalities are now present laterally Time: 12:11 Interpreted by: ED physician Normal ECG Interpretation: No acute ischemic changes Additional Diagnostics ENDOSCOPY PROCEDURE IMPRESSION: 1. Small external and internal hemorrhoids. 2. Pandiverticulosis. 3. Melenic stool seen throughout the entire colon with blood in the terminal ileum. 4. A 1 cm posterior bulb duodenal ulcer with recent stigmata of bleed, status post 2 cc epinephrine injection, Gold probe thermocoagulation, and argon plasma coagulation. RECOMMENDATIONS: 1. Protonix drip x72 hours. 2. Carafate 1 g by mouth four times a day. 3. Clear liquid diet for now. 4. Serial hematocrits. 5. Avoid NSAID, aspirin, and anticoagulation. Bo Nieves MD 04/11/17 1233 <Electronically signed by Bo Nieves MD> 04/11/17 1405 Assessment & Plan Erica Forbes is a 76 yr old female patient with past medical history significant for paroxysmal atrial fibrillation not on anticoagulation, hypertension and depression who presented to the ED with complaints of hematemesis, dark tarry stools, and diarrhea. Patient is being admitted to the CCU for likely Upper Gastrointestinal bleed and will undergo EGD and colonoscopy with anesthesia tomorrow. Acute blood loss anemia secondary to Upper GI Bleed and lower GI bleed, present on admission, under investigation. -At admit temperature was 36.4, heart rate 76, blood pressure 112/53, Hgb/ HCT of 10.3/ 32.4 -Labor Contractor, Dr. Nieves was consulted and took patient to Endo suite for EGD and colonoscopy which showed a 1-cm duodenal ulcer at the posterior bulb, [place] diverticulosis and internal and external hemorrhoids -Continue Protonix drip for 72 hours and initiate Carafate 1 g every 6 while awake - Clear liquid diet and avoid NSAIDs aspirin and anticoagulation -GI cocktail as needed -75 cc/hr NS -Trend H&H q 4hrs, hemoglobins continued to trend down prior to GI studies however has remained stable at 7.4 and above x3, - patient was consented for blood transfusion, will Transfuse if Hgb <7 Leukocytosis, present on admission, under investigation - Patient is afebrile, WBC 12.4, neutrophil count normal -Likely secondary to physiologic process (stress)/ inflammatory reaction -Continue to monitor CBC Hypertension, chronic -Patient was hypotensive en route to the ED and received 700 cc NS. She received more fluids in the ED and blood pressure is currently stable -Continue IV fluids at 75 cc/hr -Hold medication and resume once normotensive Depression, chronic - Hold medication - Citalopram 20 mg daily starting 04/12/2017 Code Status: Full Code The patient is likely to remain inpatient for 2 more days while monitoring for continual blood loss and stabilizing the patient expected to discharge home. GI Prophylaxis: Other (Protonix drip) VTE Prophylaxis: SCDs VTE Mechanical Devices: Intermittant Pneumatic CD Resuscitation Status: CPR: Attempt Resuscitation Attending Statement The patient was seen and examined together with Dr. Andrew on 04/11/17 and I have added additional information to the note above. Jus Andrew DO Apr 11, 2017 07:15 Unique Ferreira DO Apr 17, 2017 01:20
[2017-04-11] MEDS ORDERED: Sucralfate 1,000 mg Tablet PO SCH (22:00)
[2017-04-12] VITALS (11 sets, daily range): BP systolic 109–125; BP diastolic 50–71; PULSE 60–102; RESP 14–20; O2SAT 94–98
--- NOTE | 2017-04-12 02:50 | NUR ---
H&H Pt's Hgb 6.6, 2 units PRBC ordered. Q4 H&H blood draws. Pt was lightheaded while going to bathroom before transfusion of 2 units PRBC was ordered, instructed to use call light and BSC till transfusion complete. Addendum: 04/12/17 at 0620 by RIN SAM RN Hgb went from 6.6 to 8.1 after 2 units of PRBC
[2017-04-12] MEDS: Pantoprazole Inj 80 MG, Pharmacy To Mix 1 EA in 0.9% Sodium Chloride 80 ML IV SCH ×4 (03:02→15:23)
[2017-04-12] MEDS: Sucralfate 1,000 mg Tablet PO SCH ×4 (06:24→21:09)
[2017-04-12 08:50] LABS: BASOPHILS % (AUTO) 0.1 % (0-3); EOSINOPHILS % (AUTO) 1.4 % (0-5); MONOCYTES % (AUTO) 7.1 % (4-12); Mean Corpuscular Hemoglobin 28.2 pg (27.0-35.0); Mean Corpuscular Volume 88.4 fL (81-100); NEUTROPHILS % (AUTO) 68.3 % (40-74); Platelet Count 191 bil/L (150-400)
[2017-04-12] MEDS: 0.9% Sodium Chloride 1,000 ML IV SCH (10:21)
--- NOTE | 2017-04-12 10:28 | PCM.PNMED ---
Subjective Date of Service Apr 12, 2017 Subjective Erica Forbes is a 76 yr old female patient with past medical history significant for paroxysmal atrial fibrillation not on anticoagulation, hypertension and depression who presented to the ED with complaints of hematemesis, dark tarry stools, and diarrhea. Patient is being admitted for Upper Gastrointestinal bleed. Seh underwent EGD and colonoscopy which showed a 1 -cm duodenal ulcer at the posterior bulb, del valle diverticulosis and internal and external hemorrhoids. Overnight, Patient's hemoglobin was 6.6 and she was transfused 2 units PRBCs. H &H improved Hgb 8.1 and Hematocrit 25.1. Patient states that she was very light headed last night while trying to go to the bathroom. Today, patient states that she feels better than she did last night. She denies lightheadedness, dizziness, headaches, visual changes, chest pain, SOB, nausea, vomiting, abdominal pain and dysuria. Exam Vital Signs Vital Sign - Last Date Time Temp Pulse Resp B/P Pulse Ox O2 Delivery O2 Flow Rate FiO2 04/12/17 03:36 37.0 66 14 116/56 04/12/17 03:10 98 Room Air Intake and Output 04/11/17 04/11/17 04/12/17 Cumulative From/Thru 15:00 23:00 07:00 04/10/17 11:40 - 04/12/17 06:20 Intake Total 200 ml 50 ml 1736 ml 7031 ml Output Total 500 ml 300 ml 5100 ml Balance 200 ml -450 ml 1436 ml 1931 ml Intake Oral 50 ml 200 ml 4250 ml IV Total 200 ml 1236 ml 2481 ml Packed Cells 300 ml 300 ml Output Urine Total 500 ml 300 ml 800 ml Stool Total 4300 ml # Voids 1 1 # Bowel Movements 0 0 Exam General: Patient is an obese female, lying comfortably on bed, AAOX3, not in acute distress, cooperative and pleasant. HEENT: head normocephalic and atraumatic, PERRLA, EOMI, no scleral icterus, noninjected conjunctiva Neck: neck supple, non-tender, no lymphadenopathy, trachea midline, no JVD CV: regular rate and rhythm, s1 and s2 heard, radial pulses 2+ and equal bilaterally, no rubs, murmurs or gallops, no edema Lungs: Clear to auscultation bilaterally, no wheezes, rales or rhonchi, no increased work of breathing Abdomen: normoactive bowel sounds on 4Q, soft, non-distended, non-tender to palpation, no organomegally, Skin: warm and dry Musculoskeletal: 5/5 UE and LE strength bilaterally, full ROM bilaterally Neuro: Grossly neurologically intact, cranial nerves II through XII intact, no dyskinesia, dysmetria, or dysdiadochokinesia noted, sensation intact in extremities Psych: Normal mood and affect IVs and Medications IV Fluids 75 cc/hr NS Medications Reviewed: Medications were reviewed in detail Lab and Diagnostics Laboratory Tests Test 04/11/17 07:42 04/11/17 15:58 04/11/17 17:53 04/12/17 00:10 Hemoglobin 7.4g/dL (12.0-15.6) 7.6g/dL (12.0-15.6) 7.5g/dL (12.0-15.6) 6.6g/dL (12.0-15.6) Hematocrit 23.2% (35.0-46.0) 23.5% (35.0-46.0) 23.4% (35.0-46.0) 20.7% (35.0-46.0) Test 04/12/17 05:40 Hemoglobin 8.1g/dL (12.0-15.6) Hematocrit 25.1% (35.0-46.0) Result Diagram: 04/12/17 0540 04/11/17 0335 X-Rays, CTs and MRIs August 25, 2016 PROCEDURE: CT ABDOMEN AND PELVIS WITH CONTRAST ([id number]) IMPRESSION: 1. No acute process. 2. Hiatal hernia. 3. Bilateral renal scarring. 4. Fat-containing umbilical hernia. 5. Normal appendix. Dictated by: Angel Carty M.D. on 08/25/2016 at 16:25 12-lead ECG 04/10/17 ECG Interpretation: Sinus rhythm rate 65 LAD Nonspecific T wave abnormalities in leads V5 and V6 Compared to prior dated 09/05/15 - T wave abnormalities are now present laterally Time: 12:11 Interpreted by: ED physician Normal ECG Interpretation: No acute ischemic changes Additional Diagnostics ENDOSCOPY PROCEDURE IMPRESSION: 1. Small external and internal hemorrhoids. 2. Pandiverticulosis. 3. Melenic stool seen throughout the entire colon with blood in the terminal ileum. 4. A 1 cm posterior bulb duodenal ulcer with recent stigmata of bleed, status post 2 cc epinephrine injection, Gold probe thermocoagulation, and argon plasma coagulation. RECOMMENDATIONS: 1. Protonix drip x72 hours. 2. Carafate 1 g by mouth four times a day. 3. Clear liquid diet for now. 4. Serial hematocrits. 5. Avoid NSAID, aspirin, and anticoagulation. Bo Nieves MD 04/11/17 1233 <Electronically signed by Bo Nieves MD> 04/11/17 9749 Assessment & Plan Erica Forbes is a 76 yr old female patient with past medical history significant for paroxysmal atrial fibrillation not on anticoagulation, hypertension and depression who presented to the ED with complaints of hematemesis, dark tarry stools, and diarrhea. Patient is being admitted for Upper Gastrointestinal bleed. Seh underwent EGD and colonoscopy which showed a 1 -cm duodenal ulcer at the posterior bulb, del valle diverticulosis and internal and external hemorrhoids. Acute blood loss anemia secondary to Upper GI Bleed and lower GI bleed, present on admission, under investigation. -At admit temperature was 36.4, heart rate 76, blood pressure 112/53, Hgb/ HCT of 10.3/ 32.4 -Assistant Chief Of Police, Dr. Nieves was consulted and took patient to Endo suite for EGD and colonoscopy which showed a 1-cm duodenal ulcer at the posterior bulb, del valle diverticulosis and internal and external hemorrhoids -Continue Protonix drip for 72 hours and initiate Carafate 1 g every 6 while awake - Clear liquid diet and avoid NSAIDs aspirin and anticoagulation -GI cocktail as needed -75 cc/hr NS -Trend H&H q 4hrs, hemoglobins continued to trend down prior to GI studies -Overnight, H&H dropped to 6.6 and patient was transfused 2 units of PRBCs - patient was consented for blood transfusion, will Transfuse if Hgb <7 Leukocytosis, present on admission, resolved - On admit, Patient was afebrile, WBC 12.4, neutrophil count normal -Likely secondary to physiologic process (stress)/ inflammatory reaction -Continue to monitor CBC -Today WBC down to 7.9 Hypertension, chronic -Patient was hypotensive en route to the ED and received 700 cc NS. She received more fluids in the ED and blood pressure is currently stable -Continue IV fluids at 75 cc/hr -Hold medication and resume once normotensive Depression, chronic - Hold medication - Citalopram 20 mg daily starting 04/12/2017 Code Status: Full Code The patient is likely to remain inpatient for 1 more day while monitoring for continual blood loss and stabilizing the patient expected to discharge home. Pain Evaluation: Adequate Pain Control GI Prophylaxis: Other (Protonix drip) VTE Prophylaxis: SCDs VTE Mechanical Devices: Intermittant Pneumatic CD Resuscitation Status: CPR: Attempt Resuscitation Attending Statement The patient was seen and examined together with Dr. Reynolds on 04/12/2017 and I agree with the history, exam and plan as outlined in the note above. . Sanaz Reynolds DO Apr 12, 2017 06:58 Luis Higgins MD Apr 13, 2017 18:15
--- NOTE | 2017-04-12 13:05 | PCM.PNSURG ---
Subjective Date of Service: Apr 12, 2017 Date of Service: Apr 12, 2017 Visit Information: Subjective: hb 6.6 overnight transfuse prbc 2 units to 8.1. hb stable 8.3 this am. s/p egd /colon yesterday Postop General: No Complaints Objective Vital Sign- Last 8 Hours Date Time Temp Pulse Resp B/P Pulse Ox O2 Delivery O2 Flow Rate FiO2 04/12/17 11:53 36.9 60 16 109/50 95 Room Air 04/12/17 09:01 75 04/12/17 07:39 37.6 74 113/53 94 Room Air Intake and Output- Last 8 Hour 04/12/17 Cumulative From/Thru 07:00 04/10/17 11:40 - 04/12/17 06:20 Intake Total 1736 ml 7031 ml Output Total 300 ml 5100 ml Balance 1436 ml 1931 ml Intake Oral 200 ml 4250 ml IV Total 1236 ml 2481 ml Packed Cells 300 ml 300 ml Output Urine Total 300 ml 800 ml Stool Total 4300 ml # Voids 1 1 # Bowel Movements 0 0 General: Oriented X3 Neck: Supple Lungs: Clear to Auscultation Heart: Exam Unremarkable Abdomen: Benign, Soft, Non-tender, Non-distended, Normoactive bowel tones Extremities: Distal Pulses Palpable Result Diagram: 04/12/17 1124 04/12/17 0730 Assessment & Plan Impression This is a pleasant 76-year-old, female, history of paroxysmal atrial fibrillation, not on anticoagulation, hypertension, depression, status post cholecystectomy and back surgery. She presents here with melena and coffee- ground emesis. It is likely the patient has an upper gastrointestinal bleed given the fact the BUN is elevated with a normal creatinine, and in addition the patient has vomited blood. Patient in addition needs a colonoscopy given the fact it has been greater than 10 years since her last colonoscopy with melenic stools. s/p egd/colon 04/11/17- IMPRESSION: 1. Small external and internal hemorrhoids. 2. Pandiverticulosis. 3. Melenic stool seen throughout the entire colon with blood in the terminal ileum. 4. A 1 cm posterior bulb duodenal ulcer with recent stigmata of bleed, status post 2 cc epinephrine injection, Gold probe thermocoagulation, and argon plasma coagulation. RECOMMENDATIONS: 1. Protonix drip x72 hours. 2. Carafate 1 g by mouth four times a day. 3. Clear liquid diet for now. 4. Serial hematocrits. 5. Avoid NSAID, aspirin, and anticoagulation. Recs: 1) advance diet as tolerated 2) cont protonix gtt x 72 hours, cont carafate 3) serial hb/hcts 4) avoid NSAID, aspirin, and anticoagulation. will cont to follow. Problems: VTE Prophylaxis: SCDs Resuscitation Status: CPR: Attempt Resuscitation Bo Nieves MD Apr 12, 2017 13:05
--- NOTE | 2017-04-12 15:28 | NUR ---
Social Work: Readiness for Discharge/Multidisciplinary Rounds D: Pt discussed in multidisciplinary rounds; the patient is not yet medically stable for discharge but is anticipated to be ready in another day. Pt's diet advanced to clears. Capacity for self care discussed; no concerns or needs at this time. WELDING MACHINE ASSEMBLER met with the patient at bedside to discuss discharge plan and assess for unmet needs. Patient states that she anticipates discharge home tomorrow. She has been ambulating I during admission and identifies no concerns or barriers to her discharge. Patient states that her son will transport her home when she is discharged. EMR reviewed; no social work needs or barriers identified at this time. A: Pt who is I at baseline. P: Anticipate pt to discharge home via POV and no further social work needs. WELDING MACHINE ASSEMBLER to continue to follow to assess for unmet needs. MAXX Boswell
--- NOTE | 2017-04-12 18:21 | NUR ---
PO intake/Activity/PSVT Cardiac: Pt denies CP, tele: SR 70-80, up to 140 with activity, occasional PSVT 140s at rest. Resp: Pt denies SOB, SPO2 mid 90s on RA. GI/: Denies N/V, Diet advanced as tolerated. Pt has been OK taking PO this afternoon. Neuro: A&Ox3, BRYANT, pt has been getting up to chair for meals and to BR to toilet.
[2017-04-13] MEDS: Pantoprazole Inj 80 MG, Pharmacy To Mix 1 EA in 0.9% Sodium Chloride 80 ML IV SCH ×4 (00:28→09:00)
[2017-04-13 03:25] VITALS: BP 131/56; PULSE 71; RESP 20; O2SAT 97
[2017-04-13 03:26] LABS: BASOPHILS % (AUTO) 0.3 % (0-3); EOSINOPHILS % (AUTO) 2.7 % (0-5); MONOCYTES % (AUTO) 9.4 % (4-12); Mean Corpuscular Hemoglobin 28.8 pg (27.0-35.0); Mean Corpuscular Volume 88.3 fL (81-100); NEUTROPHILS % (AUTO) 60.5 % (40-74); Platelet Count 164 bil/L (150-400)
--- NOTE | 2017-04-13 05:32 | NUR ---
No Pain, No Bleeding, H/H No c/o pain. No stools, and no signs bleeding noted overnight. Pt denies dizziness while up. VS stable, Tele SR. Hgb/Hct down a little this morning to 7.9 HGB and 24.[address] Bernal notified and is aware of results, no new orders at this time.
[2017-04-13] MEDS: Sucralfate 1,000 mg Tablet PO SCH ×4 (06:23→20:33)
[2017-04-13 08:45] VITALS: PULSE 87
[2017-04-13 09:36] VITALS: BP 113/64; PULSE 64; RESP 16; O2SAT 99
--- NOTE | 2017-04-13 10:55 | PCM.PNMED ---
Subjective Date of Service Apr 13, 2017 Subjective GASTROENTEROLOGY PROGRESS NOTE: Attending Physician: Bo Nieves MD Resident Physician: Rosa Sheppard DO H/H trended down overnight, most recently Hb 7.6 and Hct 23.8. Otherwise no acute events. Patient is sitting up in the chest this morning and is without complaint. She states that she has Afib intermittently and is sometimes aware of this. She reports recent Holter monitoring and outpatient visit with Dr. Arredondo from Cardiology. Currently she denies chest pain, palpitations, shortness of breath, dizziness, abdominal pain, nausea, vomiting or melena. However, she states that she has not yet had a bowel movement. Exam Vital Signs Vital Sign - Last Date Time Temp Pulse Resp B/P Pulse Ox O2 Delivery O2 Flow Rate FiO2 04/13/17 09:36 36.7 64 16 113/64 99 Room Air Intake and Output 04/12/17 04/12/17 04/13/17 Cumulative From/Thru 15:00 23:00 07:00 04/10/17 11:40 - 04/13/17 06:17 Intake Total 3141 ml 688 ml 63533 ml Output Total 950 ml 1000 ml 7050 ml Balance 2191 ml -312 ml 3810 ml Intake Oral 1300 ml 400 ml 5950 ml IV Total 1841 ml 288 ml 4610 ml Packed Cells 300 ml Output Urine Total 950 ml 1000 ml 2750 ml Stool Total 4300 ml # Voids 2 3 # Bowel Movements 0 0 0 Exam General: Age-appropriate, well-appearing woman sitting up in the chair. Appears comfortable. Communicating appropriately. HEENT: Atraumatic, no scleral icterus, mucous membranes moist/pink. No JVD Lungs: Clear to auscultation bilaterally without wheezing, crackles, or rhonchi Cardiac: Irregular rhythm, regular rate. Normal S1, S2. No murmurs Abdomen: Soft, nondistended, mild tenderness to palpation in RLQ, no rebound or guarding. No masses. Normoactive bowel tones Extremities: Trace edema to ankle bilaterally Neurologic: AOx3. No focal deficits. Normal speech. IVs and Medications Medications Reviewed: Medications were reviewed in detail Lab and Diagnostics Laboratory Tests Test 04/12/17 11:24 04/12/17 15:39 04/12/17 19:11 04/12/17 23:55 Hemoglobin 8.3g/dL (12.0-15.6) 8.5g/dL (12.0-15.6) 8.4g/dL (12.0-15.6) 7.7g/dL (12.0-15.6) Hematocrit 25.6% (35.0-46.0) 26.1% (35.0-46.0) 25.7% (35.0-46.0) 23.7% (35.0-46.0) Test 04/13/17 03:20 04/13/17 07:25 White Blood Count 6.6th/mm3 (3.8-10.1) Red Blood Count 2.74mil/mm3 (3.90-5.20) Hemoglobin 7.9g/dL (12.0-15.6) 7.6g/dL (12.0-15.6) Hematocrit 24.2% (35.0-46.0) 23.8% (35.0-46.0) Mean Corpuscular Volume 88.3fL (81-100) Mean Corpuscular Hemoglobin 28.8pg (27.0-35.0) Mean Corpuscular Hemoglobin Concent 32.6% (32.0-37.0) Red Cell Distribution Width 14.0% (12.3-15.4) Platelet Count 164bil/L (150-400) Neutrophils (%) (Auto) 60.5% (40-74) Lymphocytes (%) (Auto) 26.8% (14-46) Monocytes (%) (Auto) 9.4% (4-12) Eosinophils (%) (Auto) 2.7% (0-5) Basophils (%) (Auto) 0.3% (0-3) Sodium Level 139mEq/L (134-144) Potassium Level 3.7mEq/L (3.5-5.2) Chloride Level 106mEq/L (97-108) Carbon Dioxide Level 22mmol/L (18-29) Blood Urea Nitrogen 11mg/dL (8-27) Creatinine 0.71mg/dL (0.57-1.00) Estimat Glomerular Filtration Rate 115mL/min (>59) Glucose Level 105mg/dL (60-99) Calcium Level 8.0mg/dL (8.5-10.1) Total Bilirubin 0.5mg/dL (0.0-1.2) Aspartate Amino Transf (AST/SGOT) 13U/L (0-50) Alanine Aminotransferase (ALT/SGPT) 8U/L (0-32) Alkaline Phosphatase 51U/L (25-165) Total Protein 4.5g/dL (6.4-8.4) Albumin 2.7g/dL (3.4-5.0) Result Diagram: 04/13/17 0725 04/13/17 0320 X-Rays, CTs and MRIs August 25, 2016- CT ABDOMEN AND PELVIS WITH CONTRAST IMPRESSION: 1. No acute process. 2. Hiatal hernia. 3. Bilateral renal scarring. 4. Fat-containing umbilical hernia. 5. Normal appendix. Dictated by: Angel Carty M.D. on 08/25/2016 at 16:25 . 12-lead ECG 04/10/17 ECG Interpretation: Sinus rhythm rate 65 LAD Nonspecific T wave abnormalities in leads V5 and V6 Compared to prior dated 09/05/15 - T wave abnormalities are now present laterally Time: 12:11 Interpreted by: ED physician Normal ECG Interpretation: No acute ischemic changes Additional Diagnostics 04/11/2017: Esophagogastroduodenoscopy with biopsy and epi injection and Gold probe thermocoagulation, and APC, colonoscopy. FINDINGS: Upon inspection of the esophagus, esophageal was normal without masses, ulcers, lesions. Z-line located at 35 cm from the incisors. Upon entering the stomach, the stomach was also normal without masses or lesions. Retroflexion was normal. Upon entering the duodenum, there was a 1-cm posterior bulb ulcer with recent stigmata of bleed. First and 2nd portion were normal. Two cc of epi injection at the ulcer site with Gold probe thermocoagulation and APC with good hemostasis. Biopsies taken in antrum and body. Upon inspection of the anus, there were small internal and external hemorrhoids throughout the entire examination. There was melenic stool seen throughout the entire colon. There was also pandiverticulosis without active bleeding at that diverticulosis. Upon intubation of the terminal ileum, there appeared to be blood inside with melena. Retroflexion showed small internal hemorrhoids. IMPRESSION: 1. Small external and internal hemorrhoids. 2. Pandiverticulosis. 3. Melenic stool seen throughout the entire colon with blood in the terminal ileum. 4. A 1 cm posterior bulb duodenal ulcer with recent stigmata of bleed, status post 2 cc epinephrine injection, Gold probe thermocoagulation, and argon plasma coagulation. RECOMMENDATIONS: 1. Protonix drip x72 hours. 2. Carafate 1 g by mouth four times a day. 3. Clear liquid diet for now. 4. Serial hematocrits. 5. Avoid NSAID, aspirin, and anticoagulation. Bo Nieves MD 04/11/17 1233 Assessment & Plan 76-year-old woman with a history of paroxysmal atrial fibrillation not on anticoagulation, hypertension and depression who presented to the ED with melena and coffee-ground emesis. Admitted for acute blood loss anemia secondary to upper GI bleed. Now s/p EGD and colonoscopy which was significant for a 1-cm duodenal ulcer at the posterior bulb, del valle diverticulosis and internal and external hemorrhoids. H/H continues to trend down slowly. However, BUN is now within normal limits. Thus suspect decreased H/H due to serial monitoring as there are no currently no overt signs of bleeding. EGD and colonoscopy findings as above. RECOMMENDATIONS: -Discontinue protonix drip and Start PO protonix 40mg twice daily -Continue Carafate 1 g by mouth four times a day. -Advance diet as tolerated. -Avoid NSAID, aspirin, and anticoagulation. -Continue to monitor Hb/Hct, limit to twice daily checks. -Transfuse blood products as needed to maintain Hb >7.0 -If no overt signs of bleeding,will likely be ready for discharge tomorrow Additional problems managed by primary medicine team: -Hypertension, chronic -Depression, chronic . Pain Evaluation: Adequate Pain Control GI Prophylaxis: Other (Protonix drip) VTE Prophylaxis: SCDs VTE Mechanical Devices: Intermittant Pneumatic CD Resuscitation Status: CPR: Attempt Resuscitation Rosa Sheppard DO Apr 13, 2017 10:41
--- NOTE | 2017-04-13 12:55 | PCM.PNMED ---
Subjective Date of Service Apr 13, 2017 Subjective Erica Forbes is a 76 yr old female patient with past medical history significant for paroxysmal atrial fibrillation not on anticoagulation, hypertension and depression who presented to the ED with complaints of hematemesis, dark tarry stools, and diarrhea. Patient is being admitted for Upper Gastrointestinal bleed. She underwent EGD and colonoscopy which showed a 1 -cm duodenal ulcer at the posterior bulb, del valle diverticulosis and internal and external hemorrhoids. Today, patient states that she feels well overall. She states that she has been ambulating and denies light-headedness, dizziness, chest pain, SOB, nausea, vomiting, abdominal pain, and dysuria. She says that she ate a fruit yesterday and that triggered some acid reflux symptoms but she denies vomiting. Patient denies any sign of active bleeding. There were no acute events overnight and there were no signs of active bleeding. Exam Vital Signs Vital Sign - Last Date Time Temp Pulse Resp B/P Pulse Ox O2 Delivery O2 Flow Rate FiO2 04/13/17 09:36 36.7 64 16 113/64 99 Room Air Intake and Output 04/12/17 04/12/17 04/13/17 Cumulative From/Thru 15:01 23:01 07:01 04/10/17 11:40 - 04/13/17 06:17 Intake Total 3141 ml 688 ml 22104 ml Output Total 950 ml 1000 ml 7050 ml Balance 2191 ml -312 ml 3810 ml Intake Oral 1300 ml 400 ml 5950 ml IV Total 1841 ml 288 ml 4610 ml Packed Cells 300 ml Output Urine Total 950 ml 1000 ml 2750 ml Stool Total 4300 ml # Voids 2 3 # Bowel Movements 0 0 0 Exam General: Patient is an obese female, lying comfortably on bed, AAOX3, not in acute distress, cooperative and pleasant. HEENT: head normocephalic and atraumatic, PERRLA, EOMI, no scleral icterus, noninjected conjunctiva Neck: neck supple, non-tender, no lymphadenopathy, trachea midline, no JVD CV:regular rate and rhythm, s1 and s2 heard, radial pulses 2+ and equal bilaterally, no rubs, murmurs or gallops, no edema Lungs: Clear to auscultation bilaterally, no wheezes, rales or rhonchi, no increased work of breathing Abdomen: normoactive bowel sounds on 4Q, soft, non-distended, non-tender to palpation, no organomegally, Skin: warm and dry Musculoskeletal: 5/5 UE and LE strength bilaterally, full ROM bilaterally Neuro: Grossly neurologically intact, cranial nerves II through XII intact, no dyskinesia, dysmetria, or dysdiadochokinesia noted, sensation intact in extremities Psych: Normal mood and affect IVs and Medications Medications Reviewed: Medications were reviewed in detail Lab and Diagnostics Laboratory Tests Test 04/12/17 11:24 04/12/17 15:39 04/12/17 19:11 04/12/17 23:55 Hemoglobin 8.3g/dL (12.0-15.6) 8.5g/dL (12.0-15.6) 8.4g/dL (12.0-15.6) 7.7g/dL (12.0-15.6) Hematocrit 25.6% (35.0-46.0) 26.1% (35.0-46.0) 25.7% (35.0-46.0) 23.7% (35.0-46.0) Test 04/13/17 03:20 04/13/17 07:25 White Blood Count 6.6th/mm3 (3.8-10.1) Red Blood Count 2.74mil/mm3 (3.90-5.20) Hemoglobin 7.9g/dL (12.0-15.6) 7.6g/dL (12.0-15.6) Hematocrit 24.2% (35.0-46.0) 23.8% (35.0-46.0) Mean Corpuscular Volume 88.3fL (81-100) Mean Corpuscular Hemoglobin 28.8pg (27.0-35.0) Mean Corpuscular Hemoglobin Concent 32.6% (32.0-37.0) Red Cell Distribution Width 14.0% (12.3-15.4) Platelet Count 164bil/L (150-400) Neutrophils (%) (Auto) 60.5% (40-74) Lymphocytes (%) (Auto) 26.8% (14-46) Monocytes (%) (Auto) 9.4% (4-12) Eosinophils (%) (Auto) 2.7% (0-5) Basophils (%) (Auto) 0.3% (0-3) Sodium Level 139mEq/L (134-144) Potassium Level 3.7mEq/L (3.5-5.2) Chloride Level 106mEq/L (97-108) Carbon Dioxide Level 22mmol/L (18-29) Blood Urea Nitrogen 11mg/dL (8-27) Creatinine 0.71mg/dL (0.57-1.00) Estimat Glomerular Filtration Rate 115mL/min (>59) Glucose Level 105mg/dL (60-99) Calcium Level 8.0mg/dL (8.5-10.1) Total Bilirubin 0.5mg/dL (0.0-1.2) Aspartate Amino Transf (AST/SGOT) 13U/L (0-50) Alanine Aminotransferase (ALT/SGPT) 8U/L (0-32) Alkaline Phosphatase 51U/L (25-165) Total Protein 4.5g/dL (6.4-8.4) Albumin 2.7g/dL (3.4-5.0) Result Diagram: 04/13/17 0725 04/13/17 0320 X-Rays, CTs and MRIs August 25, 2016 PROCEDURE: CT ABDOMEN AND PELVIS WITH CONTRAST ([id number]) IMPRESSION: 1. No acute process. 2. Hiatal hernia. 3. Bilateral renal scarring. 4. Fat-containing umbilical hernia. 5. Normal appendix. Dictated by: Angel Carty M.D. on 08/25/2016 at 16:25 12-lead ECG 04/10/17 ECG Interpretation: Sinus rhythm rate 65 LAD Nonspecific T wave abnormalities in leads V5 and V6 Compared to prior dated 09/05/15 - T wave abnormalities are now present laterally Time: 12:11 Interpreted by: ED physician Normal ECG Interpretation: No acute ischemic changes Additional Diagnostics ENDOSCOPY PROCEDURE IMPRESSION: 1. Small external and internal hemorrhoids. 2. Pandiverticulosis. 3. Melenic stool seen throughout the entire colon with blood in the terminal ileum. 4. A 1 cm posterior bulb duodenal ulcer with recent stigmata of bleed, status post 2 cc epinephrine injection, Gold probe thermocoagulation, and argon plasma coagulation. RECOMMENDATIONS: 1. Protonix drip x72 hours. 2. Carafate 1 g by mouth four times a day. 3. Clear liquid diet for now. 4. Serial hematocrits. 5. Avoid NSAID, aspirin, and anticoagulation. Bo Nieves MD 04/11/17 1233 <Electronically signed by Bo Nieves MD> 04/11/17 1405 Assessment & Plan Erica Forbes is a 76 yr old female patient with past medical history significant for paroxysmal atrial fibrillation not on anticoagulation, hypertension and depression who presented to the ED with complaints of hematemesis, dark tarry stools, and diarrhea. Patient is being admitted for Upper Gastrointestinal bleed. [facility] underwent EGD and colonoscopy which showed a 1 -cm duodenal ulcer at the posterior bulb, del valle diverticulosis and internal and external hemorrhoids. Acute blood loss anemia secondary to Upper GI Bleed and lower GI bleed, present on admission, under investigation. -At admit temperature was 36.4, heart rate 76, blood pressure 112/53, Hgb/ HCT of 10.3/ 32.4 -Hookman, Dr. Nieves was consulted and took patient to Endo suite for EGD and colonoscopy which showed a 1-cm duodenal ulcer at the posterior bulb, del valle diverticulosis and internal and external hemorrhoids -Stopped Protonix drip after 72 hours since initiation -Transition to oral protonix 40 mg bid -Continue Carafate 1 g every 6 while awake - Advance diet as tolerated and avoid NSAIDs aspirin and anticoagulation -GI cocktail as needed -75 cc/hr NS - patient was consented for blood transfusion, will Transfuse if Hgb <7 -On 04/11/17, H&H dropped to 6.6 and patient was transfused 2 units of PRBCs -We Trended H&H q 4hrs, hemoglobins continued to trend down prior to GI studies. -However, it does not appear that she is actively bleeding. BUN/CR 11/0.71 has normalized -We will now trend H&H q12 -On 04/12/17, Hemoglobin was 7.9 -Will watch patient overnight and patient will likely d/c tomorrow Leukocytosis, present on admission, resolved - On admit, Patient was afebrile, WBC 12.4, neutrophil count normal -Likely secondary to physiologic process (stress)/ inflammatory reaction -Continue to monitor CBC -Today WBC down to 6.6 Hypertension, chronic -Patient was hypotensive en route to the ED and received 700 cc NS. She received more fluids in the ED and blood pressure is currently stable -Continue IV fluids at 75 cc/hr -Hold medication and resume once normotensive Depression, chronic - Hold medication - Citalopram 20 mg daily starting 04/12/2017 Code Status: Full Code The patient is likely to remain inpatient for 1 more day while monitoring for continual blood loss and stabilizing the patient. She is expected to discharge home tomorrow. GI Prophylaxis: Other (Protonix drip) VTE Prophylaxis: SCDs VTE Mechanical Devices: Intermittant Pneumatic CD Resuscitation Status: CPR: Attempt Resuscitation Attending Statement The patient was seen and examined together with Dr. Reynolds on 04/13/2017 and I agree with the history, exam and plan as outlined in the note above. . Sanaz Reynolds DO Apr 13, 2017 10:45 Luis Higgins MD Apr 13, 2017 18:19
[2017-04-13 13:30] VITALS: BP 126/62; PULSE 66; RESP 18; O2SAT 100
[2017-04-13] MEDS: Pantoprazole 40 mg ER24 Tablet PO SCH (16:42)
--- NOTE | 2017-04-13 17:14 | PATH ---
SURGICAL PATHOLOGY Attending Physician:Bo Nieves MD CASE STATUS: Signed Out PATIENT NAME: NARA MUNROE PID: [id number] : 1940 DATE COLLECTED:04/11/2017 00:00 SPECIMEN: 1: Stomach, Antrum, Biopsy 2: Gastric, Biopsy CLINICAL HISTORY: 1). ANTRUM BIOPSY (RULE OUT H.PYLORI) 2). GASTRIC BODY BIOPSY (RULE OUT H.PYLORI) FINAL DIAGNOSIS: 1-2. Antrum, Gastric Body, Biopsies: Gastric antral and body mucosa with no diagnostic abnormality. Helicobacter organisms not identified. Negative for intestinal metaplasia, dysplasia, and malignancy. ICD10: K92.1 GROSS DESCRIPTION: The specimen is received in two formalin filled containers labeled with the patient's name. 1). The specimen is labeled "antrum" and consists of 2 portions of tissue which aggregate to 0.3 x 0.2 x 0.2 CM. The specimen is entirely submitted in cassette 1A. 2). The specimen is labeled "gastric body" and consists of 2 portions of tissue which aggregate to 0.3 x 0.3 x 0.2 CM. The specimen is entirely submitted in cassette 2A. 04/12/2017PA ICD-9 CODES: CPT CODES: 1: 51005 2: 49967 Electronically Signed Out Ahsan Clifton MD, Ph.D. [facility] Pathology [facility], [place] [address] Technical component performed at [facility], [facility] [address], [place], [address]
[2017-04-13 17:39] VITALS: BP 121/69; PULSE 62; RESP 18; O2SAT 99
--- NOTE | 2017-04-13 18:04 | NUR ---
Patient feels "much better"/BM No reports of chest pain/pressure/discomfort. Tele SR 80s with PACs prior to tele DC. BP within normal limits throughout shift. No reports of SOB/dizziness. SPO2 on RA 99%, reports rare dry cough. RR within normal limits, breath sounds clear. Per COMMER[employer]OOFING ESTIMATOR, patient had soft dark stool this AM -- MD aware, no new orders. Alert and oriented x3, BRYANT, reports sciatic tingling/burning intermittently in right foot. Up independently, good strength for age. Patient reports feeling much better and is anxiously awaiting discharge.
[2017-04-13 20:31] VITALS: BP 132/60; PULSE 75; RESP 20; O2SAT 99
[2017-04-14 03:45] VITALS: BP 118/60; PULSE 73; RESP 20; O2SAT 96
[2017-04-14 04:17] LABS: Mean Corpuscular Hemoglobin 28.6 pg (27.0-35.0)
--- NOTE | 2017-04-14 06:16 | NUR ---
Rest Pt able to rest most of this shift. Pt stating she was feeling "much better" and was glade to be going home. VSS and pt is no longer on telemetry.
[2017-04-14 08:05] VITALS: BP 118/71; PULSE 63; RESP 16; O2SAT 96
[2017-04-14] MEDS: Sucralfate 1,000 mg Tablet PO SCH ×2 (08:07→12:20)
[2017-04-14] MEDS: Pantoprazole 40 mg ER24 Tablet PO SCH (08:07)
--- NOTE | 2017-04-14 09:40 | PCM.PNMED ---
Subjective Date of Service Apr 14, 2017 Subjective GASTROENTEROLOGY PROGRESS NOTE: Attending Physician: Bo Nieves MD Resident Physician: Rosa Sheppard DO No acute events overnight. H/H stable and clinically no signs of active bleeding. Patient reports three bowel movements since yesterday morning which were largely normal in color. She is ambulating without difficulty and tolerating her diet. She denies abdominal pain, nausea, vomiting, fever, chills , shortness of breath, and chest pain. Exam Vital Signs Vital Sign - Last Date Time Temp Pulse Resp B/P Pulse Ox O2 Delivery O2 Flow Rate FiO2 04/14/17 08:05 36.8 63 16 118/71 96 Room Air Intake and Output 04/13/17 04/13/17 04/14/17 Cumulative From/Thru 15:00 23:00 07:00 04/10/17 11:40 - 04/14/17 06:37 Intake Total 1550 ml 700 ml 61968 ml Output Total 650 ml 900 ml 8600 ml Balance 900 ml -200 ml 4510 ml Intake Oral 1550 ml 700 ml 8200 ml IV Total 4610 ml Packed Cells 300 ml Output Urine Total 650 ml 900 ml 4300 ml Stool Total 4300 ml # Voids 6 9 # Bowel Movements 1 1 Exam General: Age-appropriate, well-appearing woman sitting up in the chair. Appears comfortable. Communicating appropriately. HEENT: Atraumatic, no scleral icterus, mucous membranes moist/pink. No JVD Lungs: Clear to auscultation bilaterally without wheezing, crackles, or rhonchi Cardiac: Irregular rhythm, regular rate. Normal S1, S2. No murmurs Abdomen: Soft, nondistended, nontender. No masses. Normoactive bowel tones Extremities: No edema Neurologic: AOx3. No focal deficits. Normal speech. IVs and Medications Medications Reviewed: Medications were reviewed in detail Lab and Diagnostics Laboratory Tests Test 04/13/17 14:14 04/13/17 22:31 04/14/17 03:50 04/14/17 07:20 Prealbumin 16mg/dL (20-40) Hemoglobin 7.8g/dL (12.0-15.6) 7.6g/dL (12.0-15.6) Hematocrit 24.2% (35.0-46.0) 23.4% (35.0-46.0) White Blood Count 7.5th/mm3 (3.8-10.1) Red Blood Count 2.66mil/mm3 (3.90-5.20) Mean Corpuscular Volume 88.0fL (81-100) Mean Corpuscular Hemoglobin 28.6pg (27.0-35.0) Mean Corpuscular Hemoglobin Concent 32.5% (32.0-37.0) Red Cell Distribution Width 14.0% (12.3-15.4) Platelet Count 175bil/L (150-400) Sodium Level 142mEq/L (134-144) Potassium Level 3.8mEq/L (3.5-5.2) Chloride Level 108mEq/L (97-108) Carbon Dioxide Level 23mmol/L (18-29) Blood Urea Nitrogen 12mg/dL (8-27) Creatinine 0.82mg/dL (0.57-1.00) Estimat Glomerular Filtration Rate 97mL/min (>59) Glucose Level 106mg/dL (60-99) Calcium Level 8.2mg/dL (8.5-10.1) Total Bilirubin 0.3mg/dL (0.0-1.2) Aspartate Amino Transf (AST/SGOT) 11U/L (0-50) Alanine Aminotransferase (ALT/SGPT) 10U/L (0-32) Alkaline Phosphatase 54U/L (25-165) Total Protein 4.8g/dL (6.4-8.4) Albumin 2.8g/dL (3.4-5.0) Hold Purple Top Tube Received (Received) Hold Blue Top Tube Received (Received) Hold [place] Top Tube Received (Received) Result Diagram: 04/14/1734904/14/17 035 X-Rays, CTs and MRIs August 25, 2016 PROCEDURE: CT ABDOMEN AND PELVIS WITH CONTRAST ([id number]) IMPRESSION: 1. No acute process. 2. Hiatal hernia. 3. Bilateral renal scarring. 4. Fat-containing umbilical hernia. 5. Normal appendix. Dictated by: Angel Carty M.D. on 08/25/2016 at 16:25 Additional Diagnostics 04/11/17 - ENDOSCOPY PROCEDURE IMPRESSION: 1. Small external and internal hemorrhoids. 2. Pandiverticulosis. 3. Melenic stool seen throughout the entire colon with blood in the terminal ileum. 4. A 1 cm posterior bulb duodenal ulcer with recent stigmata of bleed, status post 2 cc epinephrine injection, Gold probe thermocoagulation, and argon plasma coagulation. RECOMMENDATIONS: 1. Protonix drip x72 hours. 2. Carafate 1 g by mouth four times a day. 3. Clear liquid diet for now. 4. Serial hematocrits. 5. Avoid NSAID, aspirin, and anticoagulation. Bo Nieves MD 04/11/17 1233 Assessment & Plan 76-year-old woman with a history of paroxysmal atrial fibrillation not on anticoagulation, hypertension and depression who presented to the ED with melena and coffee-ground emesis. Admitted for acute blood loss anemia secondary to upper GI bleed. Now s/p EGD and colonoscopy which was significant for a 1-cm duodenal ulcer at the posterior bulb, del valle diverticulosis and internal and external hemorrhoids. Decrease in H/H yesterday most likely due to serial monitoring as there are no overt signs of bleeding. EGD and colonoscopy findings as above. RECOMMENDATIONS: -Continue PO protonix 40mg BID -Avoid NSAID, aspirin, and anticoagulation. -Stable for discharge from GI standpoint with outpatient followup in 2 weeks Additional problems managed by primary medicine team: -Hypertension, chronic -Depression, chronic . GI Prophylaxis: Other (Protonix drip) VTE Prophylaxis: SCDs VTE Mechanical Devices: Intermittant Pneumatic CD Resuscitation Status: CPR: Attempt Resuscitation Rosa Sheppard DO Apr 14, 2017 09:39 Rosa Sheppard DO Apr 14, 2017 09:39
[2017-04-14] MEDS ORDERED: SUCR1TAB30 PO (09:49)
[2017-04-14] MEDS ORDERED: PANT40TA3 PO (09:49)
--- NOTE | 2017-04-14 09:51 | PCM.DIMED ---
Sanaz Reynolds DO 04/14/17 0951: Discharge Instructions Date of Service Apr 14, 2017 Dates of Hospitalization Apr 10, 2017 at 14:40 Discharge Diagnosis Discharge Diagnosis Acute blood loss anemia secondary to Upper GI Bleed and lower GI bleed Duodenal ulcer Del Valle diverticulosis Internal and External Hemorrhoids Leukocytosis Hypertension Depression Medication Instructions Additional med instructions We ask that you hold your amlodipine until you are able to be re-assessed by your primary care doctor, Dr. Aaron. At home, you will continue to take Protonix twice a day and Cerafate 1 g by mouth, 4 times daily Diet Discharge Diet: Heart Healthy Activity Discharge Activity: No restrictions Call your provider Call your provider for: Fever or Chills, Shortness of breath, Bleeding, Chest pain, Vomitting, Excessive diarrhea, Weakness (unilateral) Patient Instructions Patient Instructions When you presented to the hospital, you were vomiting dark, coffee ground vomit and you were also having diarrhea with dark tarry stools. We consulted gastroenterology, Dr. Nieves, who did an endoscopy and colonoscopy. He found that you have a 1-cm duodenal ulcer, del valle diverticulosis and internal and external hemorrhoids. He suggested that we put you on a Protonix drip for 72 hours and transition you to oral Protonix thereafter. Protonix, otherwise known as pantoprazole is a proton pump inhibitor that decreases the amount of acid produced in the stomach. He also suggested that we give Cerafate 1 gram 4 times a day. Cerafate, otherwise known as sucralfate, is a medicine that forms a coating over ulcers to protect the area from further injury. Throughout your hospital stay, we monitored your blood counts, Hemoglobin and Hematocrit. At one point, your hemoglobin decreased to less than 7, so we gave you you 2 units of blood. We continued to watch your blood count and they have been stable for the past day until discharge. At home, you will continue to take Protonix twice a day and Cerafate 1 g by mouth, 4 times daily. Per recommendations of gastroenterology, we will hold off on Aspirin. Lastly, throughout your hospitalization, we held your blood pressure medicine, amlodipine because your blood pressure was low. Your blood pressure is now normal but we advise that you continue to hold it and reassess during your appointment with Dr. Aaron. Follow-up plan You will follow up with Gastroenterology, Dr. Nieves in 2 weeks and in 2 months will likely undergo a repeat endoscopy You will also follow up with your primary care doctor, Dr. Aaron within the next 1 -2 weeks. Follow-up Provider: Shelton Aaron MD Follow-up with PCP in: 1 week (1-2 weeks) Provider: Bo Nieves MD Follow-up in: 2 weeks Luis Higgins MD 04/14/17 1612: Discharge Instructions Attending's Statement The patient was seen and examined together with Dr. Reynolds on 04/14/2017 and I agree with the history, exam and plan as outlined in the note above. . Sanaz Reynolds DO Apr 14, 2017 09:51 Luis Higgins MD Apr 14, 2017 16:12
--- NOTE | 2017-04-14 11:39 | PCM.DC.MED ---
Discharge Summary Date of Service Apr 14, 2017 Dates of Hospitalization Date of Hospital Admission Apr 10, 2017 at 14:40 Date of Discharge: Apr 14, 2017 Providers: Admitting Physician: Unique Ferreira DO Primary Care Physician: Shelton Aaron MD Attending Physician: Luis Higgins MD Diagnosis at Time of Discharge Diagnosis at Time of Discharge Acute blood loss anemia secondary to Upper GI Bleed and lower GI bleed Duodenal ulcer Del Valle diverticulosis Internal and External Hemorrhoids Leukocytosis Hypertension Depression Procedures XRay, CTs & MRIs August 25, 2016 PROCEDURE: CT ABDOMEN AND PELVIS WITH CONTRAST ([id number]) IMPRESSION: 1. No acute process. 2. Hiatal hernia. 3. Bilateral renal scarring. 4. Fat-containing umbilical hernia. 5. Normal appendix. Dictated by: Angel Carty M.D. on 08/25/2016 at 16:25 Other Diagnostics 04/11/17 - ENDOSCOPY PROCEDURE IMPRESSION: 1. Small external and internal hemorrhoids. 2. Pandiverticulosis. 3. Melenic stool seen throughout the entire colon with blood in the terminal ileum. 4. A 1 cm posterior bulb duodenal ulcer with recent stigmata of bleed, status post 2 cc epinephrine injection, Gold probe thermocoagulation, and argon plasma coagulation. RECOMMENDATIONS: 1. Protonix drip x72 hours. 2. Carafate 1 g by mouth four times a day. 3. Clear liquid diet for now. 4. Serial hematocrits. 5. Avoid NSAID, aspirin, and anticoagulation. Bo Nieves MD 04/11/17 1233 Brief History Erica Forbes is a 76 yr old female patient with past medical history significant for paroxysmal atrial fibrillation not on anticoagulation, hypertension and depression who presented to the ED with complaints of hematemesis, dark tarry stools, and diarrhea. Patient states that for the past 2 weeks, she has had dark tarry stools with diarrhea and this morning, she vomited over a cup of emesis that appeared to be coffee ground and dark red in appearance. In addition, she recalls feeling like she was going to pass out. She noticed her vision going dim, felt sweaty, cold, clammy and was really wet. She denied chest pain and shortness of breath. She states that she has been having abdominal pain, mostly in the mid epigastric area and right lower quadrant since about June 2016. She describes the pain as a mild-moderate sharp pain that doesn't radiate elsewhere. Her primary care physician ordered a CT of the abdomen in September which was negative for any acute pathology. In addition, she states that she had a colonoscopy and an EGD about 10 years ago which she says was normal. She reports having a cholecystectomy in April 2015. The patient denies drinking alcohol, or taking NSAIDs. She takes Aspirin 81 mg daily and Tylenol occasionally for her back pain. En route to the ED via EMS, her systolic BP was around 95 and she received 700 cc NS. In the ED, her temperature was 36.4, heart rate 76, blood pressure 112/53 , 96% on room air. Patient was placed on the monitor in 2 large bore peripheral IVs were obtained. She received a bolus of pantoprazole and infusion , GI cocktail, intravenous fluids and Zofran. Significant labs include WBC 12.4 , Hgb/ HCT of 10.3/ 32.4 elevate BUN 36, normal creatinine 0.85. Freelance Recruiter, Dr. Nieves was consulted and he performed an EGD and colonoscopy on 04/11/17. Hospital Course Erica Forbes is a 76 yr old female patient with past medical history significant for paroxysmal atrial fibrillation not on anticoagulation, hypertension and depression who presented to the ED with complaints of hematemesis, dark tarry stools, and diarrhea. Patient was being admitted for Gastrointestinal bleed. She underwent EGD and colonoscopy on 04/11/17 which showed a 1-cm duodenal ulcer at the posterior bulb, del valle diverticulosis and internal and external hemorrhoids. Patient was placed on protonix drip for 72 hours and then switched to oral protonix 40 mg bid. She was also started on Sucralfate 1g q6hrs. Patient received 2 units PRBCs when her Hgb dropped <7. H/ H was monitored throughout hospital stay and patient is discharged with stable H /H, with no signs of active bleeding. Acute blood loss anemia secondary to Upper GI Bleed and lower GI bleed, present on admission. -At admit temperature was 36.4, heart rate 76, blood pressure 112/53, Hgb/ HCT of 10.3/ 32.4 -Freelance Recruiter, Dr. Nieves was consulted and took patient to Endo suite for EGD and colonoscopy which showed a 1-cm duodenal ulcer at the posterior bulb, del valle diverticulosis and internal and external hemorrhoids -Stopped Protonix drip after 72 hours since initiation -Transitioned to oral protonix 40 mg bid. Will continue this upon discharge -Continue Carafate 1 g every 6 hrs after discharge - Advance diet as tolerated and avoid NSAIDs aspirin and anticoagulation -GI cocktail as needed -75 cc/hr NS - patient was consented for blood transfusion, Transfuse if Hgb <7 -On 04/11/17, H&H dropped to 6.6 and patient was transfused 2 units of PRBCs -We Trended H&H q 4hrs, hemoglobins continued to trend down prior to GI studies. -However, it does not appear that she is actively bleeding. BUN/CR 11/0.71 has normalized -On 04/13/17, Hemoglobin was 7.9 -H/H remained stable overnight and patient was discharged with hemoglobin of 7.6 -Gastric and antrum biopsy were unremarkable with no evidence of H. Pylori -follow-up with GI outpatient in 2 weeks. Leukocytosis, present on admission, resolved - On admit, Patient was afebrile, WBC 12.4, neutrophil count normal -Likely secondary to physiologic process (stress)/ inflammatory reaction -Continued to monitor CBC -Today WBC down to 7.5 Hypertension, chronic -Patient was hypotensive en route to the ED and received 700 cc NS. She received more fluids in the ED and blood pressure is currently stable -Patient received IV fluids at 75 cc/hr -Held medication -Upon discharge, hold medication and reassess with PCP Depression, chronic - Hold medication - Citalopram 20 mg daily starting 04/12/2017 Code Status: Full Code Exam Vital Signs (Last) Date Time Temp Pulse Resp B/P Pulse Ox O2 Delivery O2 Flow Rate FiO2 04/14/17 08:05 36.8 63 16 118/71 96 Room Air Exam General: Patient is an obese female, lying comfortably on bed, AAOX3, not in acute distress, cooperative and pleasant. HEENT: head normocephalic and atraumatic, PERRLA, EOMI, no scleral icterus, noninjected conjunctiva Neck: neck supple, non-tender, no lymphadenopathy, trachea midline, no JVD CV:regular rate and rhythm, s1 and s2 heard, radial pulses 2+ and equal bilaterally, no rubs, murmurs or gallops, no edema Lungs: Clear to auscultation bilaterally, no wheezes, rales or rhonchi, no increased work of breathing Abdomen: normoactive bowel sounds on 4Q, soft, non-distended, non-tender to palpation, no organomegally, Skin: warm and dry Musculoskeletal: 5/5 UE and LE strength bilaterally, full ROM bilaterally Neuro: Grossly neurologically intact, cranial nerves II through XII intact, no dyskinesia, dysmetria, or dysdiadochokinesia noted, sensation intact in extremities Psych: Normal mood and affect Test 04/10/17 11:47 04/11/17 03:35 04/13/17 03:20 04/13/17 14:14 Prothrombin Time 10.7sec (8.1-12.5) Prothromb Time International Ratio 1.00ratio Hemoglobin A1c 5.8% (4.8-5.6) Magnesium Level 1.7mg/dL (1.6-2.6) Hold Gunn Top Tube Received (Received) Lactic Acid Level 0.8mmol/L (0.4-2.0) Procalcitonin 0.14ng/mL (0.00-0.08) Neutrophils (%) (Auto) 60.5% (40-74) Lymphocytes (%) (Auto) 26.8% (14-46) Monocytes (%) (Auto) 9.4% (4-12) Eosinophils (%) (Auto) 2.7% (0-5) Basophils (%) (Auto) 0.3% (0-3) Prealbumin 16mg/dL (20-40) Test 04/14/17 03:50 04/14/17 07:20 White Blood Count 7.5th/mm3 (3.8-10.1) Red Blood Count 2.66mil/mm3 (3.90-5.20) Hemoglobin 7.6g/dL (12.0-15.6) Hematocrit 23.4% (35.0-46.0) Mean Corpuscular Volume 88.0fL (81-100) Mean Corpuscular Hemoglobin 28.6pg (27.0-35.0) Mean Corpuscular Hemoglobin Concent 32.5% (32.0-37.0) Red Cell Distribution Width 14.0% (12.3-15.4) Platelet Count 175bil/L (150-400) Sodium Level 142mEq/L (134-144) Potassium Level 3.8mEq/L (3.5-5.2) Chloride Level 108mEq/L (97-108) Carbon Dioxide Level 23mmol/L (18-29) Blood Urea Nitrogen 12mg/dL (8-27) Creatinine 0.82mg/dL (0.57-1.00) Estimat Glomerular Filtration Rate 97mL/min (>59) Glucose Level 106mg/dL (60-99) Calcium Level 8.2mg/dL (8.5-10.1) Total Bilirubin 0.3mg/dL (0.0-1.2) Aspartate Amino Transf (AST/SGOT) 11U/L (0-50) Alanine Aminotransferase (ALT/SGPT) 10U/L (0-32) Alkaline Phosphatase 54U/L (25-165) Total Protein 4.8g/dL (6.4-8.4) Albumin 2.8g/dL (3.4-5.0) Hold Purple Top Tube Received (Received) Hold Blue Top Tube Received (Received) Hold [place] Top Tube Received (Received) Microbiology Results Biopsy 1). ANTRUM BIOPSY (RULE OUT H.PYLORI) 2). GASTRIC BODY BIOPSY (RULE OUT H.PYLORI) FINAL DIAGNOSIS: 1-2. Antrum, Gastric Body, Biopsies: Gastric antral and body mucosa with no diagnostic abnormality. Helicobacter organisms not identified. Negative for intestinal metaplasia, dysplasia, and malignancy. Discharge Medications Discharge Medications Calcium Carbonate (Calcium) 600 Mg Tablet 600 MG PO DAILY (Reported) Cholecalciferol (Vitamin D3) (Vitamin D3) 1,000 Unit Tab.chew 2,000 UNIT PO DAILY (Reported) Citalopram (Citalopram) 20 Mg Tablet 20 MG PO DAILY (Reported) Folic Acid (Folic Acid) 0.4 Mg Tablet Unknown Dose PO DAILY (Reported) Pantoprazole (Pantoprazole DR) 40 Mg Tablet.dr 40 MG PO BIDAC Prescribed by: Charlene GONZALEZ Sucralfate (Carafate) 1 Gm Tablet 1,000 MG PO QID Prescribed by: Charlene GONZALEZ As needed Acetaminophen (Acetaminophen) 500 Mg Tablet 500 MG PO Q6H PRN PRN For Fever ( Reported) Additional med instructions We ask that you hold your amlodipine until you are able to be re-assessed by your primary care doctor, Dr. Aaron. At home, you will continue to take Protonix twice a day and Cerafate 1 g by mouth, 4 times daily Followup Plan Disposition: Patient is in stable condition and will be discharged to home. Follow-up plan You will follow up with Gastroenterology, Dr. Nieves in 2 weeks and in 2 months will likely undergo a repeat endoscopy You will also follow up with your primary care doctor, Dr. Aaron within the next 1 -2 weeks. Discharge Diet: Heart Healthy Discharge Activity: No restrictions Patient Instructions When you presented to the hospital, you were vomiting dark, coffee ground vomit and you were also having diarrhea with dark tarry stools. We consulted gastroenterology, Dr. Nieves, who did an endoscopy and colonoscopy. He found that you have a 1-cm duodenal ulcer, del valle diverticulosis and internal and external hemorrhoids. He suggested that we put you on a Protonix drip for 72 hours and transition you to oral Protonix thereafter. Protonix, otherwise known as pantoprazole is a proton pump inhibitor that decreases the amount of acid produced in the stomach. He also suggested that we give Cerafate 1 gram 4 times a day. Cerafate, otherwise known as sucralfate, is a medicine that forms a coating over ulcers to protect the area from further injury. Throughout your hospital stay, we monitored your blood counts, Hemoglobin and Hematocrit. At one point, your hemoglobin decreased to less than 7, so we gave you you 2 units of blood. We continued to watch your blood count and they have been stable for the past day until discharge. At home, you will continue to take Protonix twice a day and Cerafate 1 g by mouth, 4 times daily. Per recommendations of gastroenterology, we will hold off on Aspirin. Lastly, throughout your hospitalization, we held your blood pressure medicine, amlodipine because your blood pressure was low. Your blood pressure is now normal but we advise that you continue to hold it and reassess during your appointment with Dr. Aaron. Follow-up Provider: Shelton Aaron MD Follow-up with PCP in: 1 week (1-2 weeks) Provider: Bo Nieves MD Follow-up in: 2 weeks Time spent Greater than 30 minutes was spent in preparation of discharge with greater than 50% of that time dedicated to patient counseling and coordination of care. . Attending Statement The patient was seen and examined together with Dr. Reynolds on 04/14/2017 and I agree with the history, exam and plan as outlined in the note above. . copies to: Shelton Aaron MD, Alexa N DO Apr 14, 2017 11:39 Luis Higgins MD Apr 14, 2017 16:16
--- NOTE | 2017-04-14 12:55 | NUR ---
Discharge Patient left unit via wheelchair with family in a stable condition. IV DC'd intact, no tele to remove, all personal belongings with patient. New medications of protonix PO BID and Carafate PO QID reviewed with next due times written down and discussed, paper prescriptions with patient. Discussed the discontinuation of amlodipine as well as omeprazole and aspirin per MD orders. Follow up with GI in 2 weeks and PCP in one week discussed, appointments made. Patient had no questions at time of discharge and verbalized back to RN next due times for medications.
--- NOTE | 2017-04-14 13:52 | NUR ---
Social Work: Discharge/Multidisciplinary Rounds D: Pt discussed in multidisciplinary rounds; the patient is medically stable for discharge home with no sw needs. Capacity for self-care reviewed; no concerns at this time. CORE FITTER met with the patient at bedside to confirm discharge plan and assess for unmet needs. She expresses no concerns about discharge and states that her family will be coming to pick her up. She has been ambulating I during admission and participating in her own self-care. EMR reviewed; no discharge needs identified. RN to complete teaching and discharge education. A: Pt who is I at baseline. P: Pt to discharge home today via POV and no identified sw needs. MAXX Boswell
== END 2017-04-14 12:48 | disposition home or self-care (01) | DRG 378 ==
LOC: SED 11:26 → EDBD 11:26 → CCU 14:40 → PCC 17:26
PROVIDERS: ADMIT Neuromusculoskeletal Medicine & OMM; ATTEND Neuromusculoskeletal Medicine & OMM
PROC: 3E0G8GC Introduction of Other Therapeutic Substance into Upper GI, Via Natural or Artificial Opening Endoscopic (ICD-10-PCS; 2017-04-11)
PROC: 0DB68ZX Excision of Stomach, Via Natural or Artificial Opening Endoscopic, Diagnostic (ICD-10-PCS; principal; 2017-04-11 11:45)
PROC: 0DJD8ZZ Inspection of Lower Intestinal Tract, Via Natural or Artificial Opening Endoscopic (ICD-10-PCS; 2017-04-11 11:45)
PROC: 0W3P8ZZ Control Bleeding in Gastrointestinal Tract, Via Natural or Artificial Opening Endoscopic (ICD-10-PCS; 2017-04-11 11:45)
PROC: 30233N1 Transfusion of Nonautologous Red Blood Cells into Peripheral Vein, Percutaneous Approach (ICD-10-PCS; 2017-04-12)
DX: K26.0 Acute duodenal ulcer with hemorrhage (principal); D62 Acute posthemorrhagic anemia; I95.89 Other hypotension; I48.0 Paroxysmal atrial fibrillation; I10 Essential (primary) hypertension; Z79.82 Long term (current) use of aspirin; Z87.891 Personal history of nicotine dependence; F32.9 Major depressive disorder, single episode, unspecified; K57.30 Diverticulosis of large intestine without perforation or abscess without bleeding; K92.1 Melena